=== PATIENT | male | born 1925 | race Two or more races ===

== ENCOUNTER 2016-11-07 17:03 | Inpatient (IN) | payer MEDICARE, BC ==
[~2016-11-07] VITALS: Ht 167.6 cm; Wt 54.6 kg
[2016-11-07 17:39] LABS: BASO # 0.1 x10^3/uL (0.0-0.2); BASO % 1 % (0-3); EOS # 0.3 x10^3/uL (0.0-0.7); EOS % 3 % (0-3); HEMATOCRIT 37.4 % (39.0-53.0); HEMOGLOBIN 12.2 g/dL (13.0-17.5); LYMPH # 1.8 x10^3/uL (1.0-4.8); LYMPH % 21 % (24-48); MEAN CORPUSCULAR HEMOGLOBIN 31 pg (25-35); MEAN CORPUSCULAR HGB CONC 33 g/dL (31-37); MEAN CORPUSCULAR VOLUME 94 fL (79-100); MONO # 0.7 x10^3/uL (0.0-1.1); MONO % 8 % (0-9); NEUT # 5.9 x10^3uL (1.8-7.7); NEUT % 67 % (31-73); PLATELET COUNT 364 x10^3/uL (140-400); RED BLOOD COUNT 3.99 x10^6/uL (4.30-5.70); RED CELL DISTRIBUTION WIDTH 13.7 % (11.5-14.5); WHITE BLOOD COUNT 8.7 x10^3/uL (4.0-11.0)
[2016-11-07 17:53] LABS: ALBUMIN 3.5 g/dL (3.4-5.0); ALBUMIN/GLOBULIN RATIO 0.7 (1.0-1.7); CALCIUM 9.3 mg/dL (8.5-10.1); CREATININE 1.6 mg/dL (0.7-1.3); GFR 40.9; MAGNESIUM 2.1 mg/dL (1.8-2.4); POTASSIUM 4.3 mmol/L (3.5-5.1); TOTAL BILIRUBIN 0.3 mg/dL (0.2-1.0); TOTAL PROTEIN 8.5 g/dL (6.4-8.2)
--- NOTE | 2016-11-07 18:03 | PHYS DOC ---
Past History Past Medical History: A-Fib, CHF, CVA, Dementia Past Surgical History: No Surgical History Alcohol Use: None Drug Use: None Adult General Chief Complaint Chief Complaint: PSYCH EVALUATION HPI HPI 89-year-old male patient resident of [place] did not take his medication for the last 2 weeks and was agitated. Patient brought in for medical clearance for psychiatric placement. Patient states he doesn't know why he is here. Review of Systems Review of Systems Constitutional: Denies fever or chills [] Eyes: Denies change in visual acuity, redness, or eye pain [] HENT: Denies nasal congestion or sore throat [] Respiratory: Denies cough or shortness of breath [] Cardiovascular: No additional information not addressed in HPI [] GI: Denies abdominal pain, nausea, vomiting, bloody stools or diarrhea [] : Denies dysuria or hematuria [] Musculoskeletal: Denies back pain or joint pain [] Integument: Denies rash or skin lesions [] Neurologic: Denies headache, focal weakness or sensory changes [] Endocrine: Denies polyuria or polydipsia [] Allergies Allergies Allergies Coded Allergies Type Severity Reaction Last Updated Verified No Known Drug Allergies 11/07/16 No Physical Exam Physical Exam Constitutional: Well nourished, no acute distress, non-toxic appearance. [] HENT: Normocephalic, atraumatic, bilateral external ears normal, oropharynx moist, no oral exudates, nose normal. [] Eyes: PERRLA, EOMI, conjunctiva normal, no discharge. [] Neck: Normal range of motion, no tenderness, supple, no stridor. [] Cardiovascular:Heart rate regular rhythm, no murmur [] Lungs & Thorax: Bilateral breath sounds clear to auscultation [] Abdomen: Bowel sounds normal, soft, no tenderness, no masses, no pulsatile masses. [] Skin: Warm, dry, no erythema, no rash. [] Back: No tenderness, no CVA tenderness. [] Extremities: No tenderness, no cyanosis, no clubbing, ROM intact, no edema. [] Neurologic: Alert and oriented X 1, normal motor function, normal sensory function, no focal deficits noted. [] Psychologic: Affect normal Current Patient Data Vital Signs Vital Signs Date Time Temp Pulse Resp B/P Pulse Ox O2 Delivery O2 Flow Rate FiO2 11/07/16 17:03 98.2 83 20 94 Room Air Lab Results Laboratory Tests Test 11/07/16 17:20 White Blood Count 8.7x10^3/uL (4.0-11.0) Red Blood Count 3.99x10^6/uL (4.30-5.70) L Hemoglobin 12.2g/dL (13.0-17.5) L Hematocrit 37.4% (39.0-53.0) L Mean Corpuscular Volume 94fL (79-100) Mean Corpuscular Hemoglobin 31pg (25-35) Mean Corpuscular Hemoglobin Concent 33g/dL (31-37) Red Cell Distribution Width 13.7% (11.5-14.5) Platelet Count 364x10^3/uL (140-400) Neutrophils (%) (Auto) 67% (31-73) Lymphocytes (%) (Auto) 21% (24-48) L Monocytes (%) (Auto) 8% (0-9) Eosinophils (%) (Auto) 3% (0-3) Basophils (%) (Auto) 1% (0-3) Neutrophils # (Auto) 5.9x10^3uL (1.8-7.7) Lymphocytes # (Auto) 1.8x10^3/uL (1.0-4.8) Monocytes # (Auto) 0.7x10^3/uL (0.0-1.1) Eosinophils # (Auto) 0.3x10^3/uL (0.0-0.7) Basophils # (Auto) 0.1x10^3/uL (0.0-0.2) Sodium Level 140mmol/L (136-145) Potassium Level 4.3mmol/L (3.5-5.1) Chloride Level 102mmol/L (98-107) Carbon Dioxide Level 29mmol/L (21-32) Anion Gap 9 (6-14) Blood Urea Nitrogen 27mg/dL (8-26) H Creatinine 1.6mg/dL (0.7-1.3) H Estimated GFR (Cockcroft-Gault) 40.9 BUN/Creatinine Ratio 17 (6-20) Glucose Level 116mg/dL (70-99) H Calcium Level 9.3mg/dL (8.5-10.1) Magnesium Level 2.1mg/dL (1.8-2.4) Total Bilirubin 0.3mg/dL (0.2-1.0) Aspartate Amino Transferase (AST) 26U/L (15-37) Alanine Aminotransferase (ALT) 44U/L (16-63) Alkaline Phosphatase 88U/L (46-116) Total Protein 8.5g/dL (6.4-8.2) H Albumin 3.5g/dL (3.4-5.0) Albumin/Globulin Ratio 0.7 (1.0-1.7) L EKG EKG [] Radiology/Procedures Radiology/Procedures [] Course & Med Decision Making Course & Med Decision Making Pertinent Labs reviewed. (See chart for details) Evaluation of patient in ER showed 89-year-old male patient brought in for medical clearance for psych placement. Patient had unremarkable physical exam except for dementia and labs. Patient was medically cleared for psych admission at 1817. [] Dragon Disclaimer Dragon Disclaimer This chart was dictated in whole or in part using Voice Recognition software in a busy, high-work load, and often noisy Emergency Department environment. It may contain unintended and wholly unrecognized errors or omissions. Departure Departure: Impression: Primary Impression: Medical clearance for psychiatric admission Additional Impression: Renal insufficiency Disposition: 65 XFER TO PSYCH HOSP/UNIT Condition: GOOD Referrals: ЮЛИЯ RUIZ JR, MD (PCP) Problem Qualifiers PIERRE ARREOLA MD Nov 07, 2016 18:03
[2016-11-07 18:05] LABS: BILIRUBIN,URINE NEG (NEG); CLARITY,URINE TURBID; COLOR,URINE YELLOW; GLUCOSE,URINE NEG (NEG)
[2016-11-07 18:06] LABS: NITRITE,URINE POS (NEG); RBC,URINE 0 /HPF (0-2); UROBILINOGEN,URINE 0.2 mg/dL (0.2 mg/dL)
[2016-11-07 18:07] LABS: BACTERIA,URINE MANY /HPF (0-FEW); WBC,URINE >40 /HPF (0-4)
[2016-11-07 18:41] VITALS: BP 138/74
[2016-11-07] MEDS ORDERED: QUEtiapine 25 MG TABLET. PO PRN (19:30)
[2016-11-07] MEDS ORDERED: ASCO500T3 PO (19:31)
[2016-11-07] MEDS ORDERED: IBUP200T5 PO (19:31)
[2016-11-07] MEDS ORDERED: VITA80003 PO (19:31)
[2016-11-07] MEDS ORDERED: LEVO75TA5 PO (19:31)
[2016-11-07] MEDS ORDERED: QUET25TA PO ×3 (19:31)
[2016-11-07] MEDS ORDERED: ASPI81TA44 PO (19:31)
[2016-11-07] MEDS ORDERED: METO25TA2 PO (19:31)
[2016-11-07] MEDS ORDERED: CYAN500T PO (19:31)
[2016-11-07] MEDS ORDERED: MULT1TAB97 PO (19:31)
[2016-11-07] MEDS ORDERED: MELA5TAB PO (19:31)
[2016-11-07] MEDS ORDERED: SODI22SP NS (19:31)
[2016-11-07] MEDS ORDERED: CHOL10003 PO (19:31)
[2016-11-07] MEDS ORDERED: METHYL SALICYLATE/MENTHOL TOPICAL OINTMENT 29GM TUBE. TP PRN (19:45)
[2016-11-07] MEDS ORDERED: IBUPROFEN 400 MG TABLET. PO PRN (19:45)
[2016-11-07] MEDS ORDERED: MAGNESIUM HYDROXIDE 2,400 MG/30 ML ORAL.SUSP. PO PRN (19:45)
[2016-11-07] MEDS ORDERED: ACETAMINOPHEN 325 MG TABLET PO PRN (19:45)
[2016-11-07] MEDS ORDERED: MAG HYDROX/AL HYDROX/SIMETH 30 ML ORAL.SUSP PO PRN (19:45)
[2016-11-07] MEDS ORDERED: SODIUM CHL/ALOE VERA NASAL GEL 14.1GM TUBE. NS PRN (20:00)
[2016-11-07] MEDS: MELATONIN 3 MG TABLET PO SCH (21:00)
[2016-11-07] MEDS: QUEtiapine 25 MG TABLET. PO SCH (21:00)
--- NOTE | 2016-11-07 21:21 | PDOC ---
Exam Bernabe Demential Exam: Bernabe Note: Please also refer to the separate dictated note~for this date of service dictated separately.~Patient seen individually. Discussed the patient with Nursing staff reviewed the chart.~Reviewed interim history and current functioning. Reviewed vital signs,~Labs/ Radiology~and current medications noted below. Continue current treatment with the changes noted in the dictated addendum note Assessment: Vital Signs: Vital Signs Date Time Temp Pulse Resp B/P Pulse Ox O2 Delivery O2 Flow Rate FiO2 11/07/16 18:41 88 18 138/74 96 Room Air 11/07/16 17:03 98.2 Labs: Laboratory Tests Test 11/07/16 17:20 11/07/16 17:35 White Blood Count 8.7x10^3/uL (4.0-11.0) Red Blood Count 3.99x10^6/uL (4.30-5.70) L Hemoglobin 12.2g/dL (13.0-17.5) L Hematocrit 37.4% (39.0-53.0) L Mean Corpuscular Volume 94fL (79-100) Mean Corpuscular Hemoglobin 31pg (25-35) Mean Corpuscular Hemoglobin Concent 33g/dL (31-37) Red Cell Distribution Width 13.7% (11.5-14.5) Platelet Count 364x10^3/uL (140-400) Neutrophils (%) (Auto) 67% (31-73) Lymphocytes (%) (Auto) 21% (24-48) L Monocytes (%) (Auto) 8% (0-9) Eosinophils (%) (Auto) 3% (0-3) Basophils (%) (Auto) 1% (0-3) Neutrophils # (Auto) 5.9x10^3uL (1.8-7.7) Lymphocytes # (Auto) 1.8x10^3/uL (1.0-4.8) Monocytes # (Auto) 0.7x10^3/uL (0.0-1.1) Eosinophils # (Auto) 0.3x10^3/uL (0.0-0.7) Basophils # (Auto) 0.1x10^3/uL (0.0-0.2) Sodium Level 140mmol/L (136-145) Potassium Level 4.3mmol/L (3.5-5.1) Chloride Level 102mmol/L (98-107) Carbon Dioxide Level 29mmol/L (21-32) Anion Gap 9 (6-14) Blood Urea Nitrogen 27mg/dL (8-26) H Creatinine 1.6mg/dL (0.7-1.3) H Estimated GFR (Cockcroft-Gault) 40.9 BUN/Creatinine Ratio 17 (6-20) Glucose Level 116mg/dL (70-99) H Calcium Level 9.3mg/dL (8.5-10.1) Magnesium Level 2.1mg/dL (1.8-2.4) Total Bilirubin 0.3mg/dL (0.2-1.0) Aspartate Amino Transferase (AST) 26U/L (15-37) Alanine Aminotransferase (ALT) 44U/L (16-63) Alkaline Phosphatase 88U/L (46-116) Total Protein 8.5g/dL (6.4-8.2) H Albumin 3.5g/dL (3.4-5.0) Albumin/Globulin Ratio 0.7 (1.0-1.7) L Urine Collection Type Unknown Urine Color Yellow Urine Clarity Turbid Urine pH 5.5 Urine Specific [place] 1.020 Urine Protein 30 mg/dl (NEG-TRACE) Urine Glucose (UA) Negmg/dL (NEG) Urine Ketones (Stick) Negmg/dL (NEG) Urine Blood Small (NEG) Urine Nitrite Pos (NEG) Urine Bilirubin Neg (NEG) Urine Urobilinogen Dipstick 0.2mg/dL (0.2 mg/dL) Urine Leukocyte Esterase Large (NEG) Urine RBC 0/HPF (0-2) Urine WBC >40/HPF (0-4) Urine Squamous Epithelial Cells None/LPF Urine Bacteria Many/HPF (0-FEW) Current Medications: Meds: Current Medications Quetiapine Fumarate (SEROquel) 12.5 mg BID92 PO ; Start 11/08/16 at 09:00 Quetiapine Fumarate (SEROquel) 12.5 mg PRN TID PRN PO ANXIETY / AGITATION; Start 11/07/16 at 19:30 Quetiapine Fumarate (SEROquel) 25 mg HS PO ; Start 11/07/16 at 21:00 Ascorbic Acid (Vitamin C) 500 mg DAILY PO ; Start 11/08/16 at 09:00 Aspirin (Children'S Aspirin) 81 mg DAILY PO ; Start 11/08/16 at 09:00 Vitamin D (Vitamin D3) 1,000 unit DAILY PO ; Start 11/08/16 at 09:00 Ibuprofen (Motrin) 400 mg PRN TID PRN PO PAIN; Start 11/07/16 at 19:45 Levothyroxine Sodium (Synthroid) 75 mcg DAILY06 PO ; Start 11/08/16 at 06:00 Metoprolol Succinate (Toprol Xl) 25 mg DAILY PO ; Start 11/08/16 at 09:00 Cyanocobalamin (Vitamin B-12) 500 mcg DAILY PO ; Start 11/08/16 at 09:00 Melatonin 4.5 mg HS PO ; Start 11/07/16 at 21:00 Multivitamins/ Calcium (Thera-M Plus) 1 tab DAILY PO ; Start 11/08/16 at 09:00 Sodium Chloride ([place] Saline Nasal) 1 isaura PRN QID PRN NS Dry Nasal Passages; Start 11/07/16 at 20:00 Non-Formulary Medication 8,000 unit DAILY PO Supplement; Start 11/08/16 at 09:00 ; Status UNV Acetaminophen (Tylenol) 650 mg PRN Q6HRS PRN PO PAIN / TEMP; Start 11/07/16 at 19:45 Multi-Ingredient Ointment (Analgesic [place]) 1 isaura PRN QID PRN TP MUSCLE PAIN; Start 11/07/16 at 19:45 Al Hydroxide/Mg Hydroxide (Mylanta Plus Xs) 15 ml PRN AFTMEALHC PRN PO DYSPEPSIA; Start 11/07/16 at 19:45 Magnesium Hydroxide (Milk Of Magnesia) 2,400 mg PRN QHS PRN PO CONSTIPATION; Start 11/07/16 at 19:45 Olanzapine (Zyprexa Zydis) 2.5 mg PRN Q2HR PRN PO PSYCHOSIS; Start 11/07/16 at 21:15 Active Scripts Active Reported Quetiapine Fumarate 25 Mg Tablet 12.5 Mg PO PRN TID PRN Ibuprofen 200 Mg Tablet 400 Mg PO PRN TID PRN [place] Saline Nasal Gel [place] (Sodium Chloride/Aloe Vera) 22 Ml [place] 2 Sprays NS PRN QID PRN Levothyroxine Sodium 75 Mcg Tablet 75 Mcg PO DAILY06 Melatonin 5 Mg Tablet 5 Mg PO HS Quetiapine Fumarate 25 Mg Tablet 25 Mg PO HS Quetiapine Fumarate 25 Mg Tablet 12.5 Mg PO BID Vitamin A 8,000 Unit Capsule 8,000 Unit PO DAILY Daily Multiple Vitamin (Multivitamin) 1 Each Tablet 1 Each PO DAILY Toprol Xl (Metoprolol Succinate) 25 Mg Tab.er.24h 25 Mg PO DAILY Vitamin B-12 (Cyanocobalamin (Vitamin B-12)) 500 Mcg Tablet 500 Mcg PO DAILY Vitamin D3 (Cholecalciferol (Vitamin D3)) 1,000 Unit Tablet 1,000 Unit PO DAILY Children's Aspirin (Aspirin) 81 Mg Tab.chew 81 Mg PO DAILY Ascorbic Acid 500 Mg Tablet 500 Mg PO DAILY Diagnosis: Problems: (1) Medical clearance for psychiatric admission DEANA MART MD Nov 07, 2016 21:21
[2016-11-08 05:47] VITALS: BP 149/79
[2016-11-08] MEDS: LEVOTHYROXINE 75 MCG TABLET PO SCH (05:48)
--- NOTE | 2016-11-08 07:28 | ACF ---
Admission Criteria Forms PSYCHIATRIC DISORDERS Clinical Indications for Inpatient Care (Place 'X' for any and all applicable criteria): Ongoing inpatient care may be needed for ANY ONE of the following(1)(2)(3)(4)(6) (7)(8): [ ]I. Danger to self or others not manageable at lower level of care. [ ]II. Grave disability (eg, inability to perform self care necessary at lower level of care) [X]III. Agitation or inappropriate behavior interfering with care for primary condition (eg, attempting to discontinue lines or drains prematurely, unable to cooperate with respiratory care) [ ]IV. Severe disability or disorder indicated by ALL of the following: [ ]a) Severe behavioral health disorder-related symptoms or condition indicated by ANY ONE of the following: [ ]i) Severe problem with cognition, memory, judgment, or impulse control [ ]ii) Severe clinical manifestations (eg, hallucinations, delusions, other acute psychotic symptoms, michelle, extreme agitation or anxiety) [ ]b) Patient management at lower level of care is not feasible until acute intervention or modification is initiated. Extended stay beyond goal length of stay for the primary condition may be indicated when ANY ONE of the following is present: (1)(2)(3)(4): [ ]a) Patient is a danger to self or others and not manageable at lower level of care. [ ]b) Behavior crisis management, including physical or chemical restraints, is required and is not available at a lower level of care. [ ]c) Behavioral symptoms (e.g., agitation, somnolence, inappropriate behavior) are present, and are not manageable at a lower level of care. [ ]d) Patient cannot understand follow-up treatment and crisis plan. [ ]e) Provider and supports are not sufficiently available at lower level of care. [ ]f) Patient cannot participate (e.g., verify absence of plan for harm) and is in needed of monitoring. The original [employer] content created by [employer] has been revised. The portions of the content which have been revised are identified through the use of italic text or in bold, and [facility] has neither reviewed nor approved the modified material. All other unmodified content is copyright [facility] [employer]. Please see references footnoted in the original [facility] edition 2016 Admission Criteria Met?: Yes KARINA BARBOUR Nov 08, 2016 07:27
[2016-11-08] MEDS: METOPROLOL SUCC 24HR ER 25 MG TAB.ER.24H. PO SCH ×2 (09:00→09:18)
[2016-11-08] MEDS: ASCORBIC ACID 500 MG TABLET PO SCH ×2 (09:00→09:18)
[2016-11-08] MEDS: MULTIVITAMIN with MINERAL TABLET. PO SCH ×2 (09:00→09:16)
[2016-11-08] MEDS: ASPIRIN 81 MG TAB.CHEW PO SCH ×2 (09:00→09:14)
[2016-11-08] MEDS: CHOLECALCIFEROL (VITAMIN D3) 1,000 UNIT TABLET PO SCH ×2 (09:00→09:18)
[2016-11-08] MEDS: QUEtiapine 25 MG TABLET. PO SCH ×4 (09:00→19:30)
[2016-11-08] MEDS: CYANOCOBALAMIN (VITAMIN B-12) 250 MCG TABLET PO SCH ×2 (09:00→09:18)
[2016-11-08] MEDS ORDERED: PNEUMOC CONJ VACC 23-VALENT 0.5 ML VIAL. VAX IM ONE (09:00)
[2016-11-08] MEDS ORDERED: NON FORMULARY ITEM (Vitamin A 8,000 UNIT) PO SCH (09:00)
[2016-11-08] MEDS: OLANZAPINE ZYDIS 5 MG TAB.RAPDIS PO PRN (09:16)
--- NOTE | 2016-11-08 10:50 | EKG ---
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
[2016-11-08 14:46] LABS: IRON,SERUM 64 ug/dL (65-175)
[2016-11-08 14:48] LABS: THYROID STIM HORMONE (TSH) 3.931 uIU/mL (0.358-3.740)
[2016-11-08 15:48] VITALS: BP 146/79
[2016-11-08] MEDS ORDERED: CEFTRIAXONE IM 1 GM VIAL. IM ONE (18:00)
[2016-11-08 18:09] LABS: T3 TOTAL 73 ng/dL (71-180); THYROXINE 6.6 ug/dL (4.5-12.0)
[2016-11-08] MEDS: MELATONIN 3 MG TABLET PO SCH (19:30)
--- NOTE | 2016-11-08 20:21 | HP ---
ADMIT DATE: 11/07/2016 Psychiatric Admission History/Evaluation IDENTIFYING DATA: The patient is an 89-year-old male referred to us from [facility] by Dr. Abhi Styles, his primary care physician on account of being verbally aggressive, threatening others, refusing his medications. The patient had been admitted to [facility] just a couple of days previously, behaviors were unmanageable, dangerous had failed outpatient psychiatric interventions. He was therefore referred for inpatient psychiatric stabilization. CHIEF COMPLAINT: "I am okay. I was living at home with my family. They took me to the hospital and then to the senior living. I don't know why they sent me here." HISTORY OF PRESENT ILLNESS: The patient has a history of increasing agitation, aggression, mood lability. He has also had some short term memory deficits. No clear suicidal or homicidal ideation. No clear history of bipolar disorder. PAST PSYCHIATRIC HISTORY: Positive for some short term memory deficits, agitation, paranoia. PAST MEDICAL HISTORY: Positive for status post CVA, congestive heart failure, atrial fibrillation, renal failure, edema, hypothyroidism. The patient was seen at the [facility] Emergency Room prior to this admission, found to be medically stable to be on a unit. DRUG ALLERGIES: Negative. FAMILY HISTORY: Noncontributory. SOCIAL HISTORY: No alcohol or drug abuse history. The patient states he served in the [employer]. PHYSICAL EXAMINATION: VITAL SIGNS: Temperature 98.2, pulse 83, BP 132/76, pulse ox 94%. MENTAL STATUS EXAM: The patient was seen individually in the evening of 11/08/2016. He is oriented to himself and situation. Short term memory is impaired. He is somewhat paranoid, suspicious, withdrawn, often verbal responses, monosyllabic, short and somewhat abrupt. No active suicidal or homicidal ideation. Attention span short, language function intact. REVIEW OF SYSTEMS: No CV, , eye, ENT or pulmonary system symptoms on review. LABORATORY DATA: Reviewed. IMPRESSION: Major neurocognitive disorder, early vascular with depression, delusion, behavioral disturbance; anxiety disorder, unspecified; impulse control disorder, unspecified. Rest diagnosis is unchanged. PLAN: Admit to the geropsychiatry unit at [facility]. I will see the patient daily individually from a psychiatric standpoint, request medical followup with Dr. Moreno/Dr. Faulkner. Continue the patient on his B12 supplements, vitamin D supplements. Continue Synthroid together with the Zyprexa p.r.n., Seroquel 12.5 mg b.i.d. and 25 mg at bedtime plus p.r.n. Code Status DNR. May consider BuSpar for anxiety, SSRIs for his mood, depression symptoms, Depakote if aggression resurfaces. MAN Sera MART MD DR: KHADAR/mariza JOB#: [id number] / [id number]
--- NOTE | 2016-11-08 21:07 | PDOC ---
Exam Bernabe Demential Exam: Bernabe Note: Please also refer to the separate dictated note~for this date of service dictated separately.~Patient seen individually. Discussed the patient with Nursing staff reviewed the chart.~Reviewed interim history and current functioning. Reviewed vital signs,~Labs/ Radiology~and current medications noted below. Continue current treatment with the changes noted in the dictated addendum note Assessment: Vital Signs: Vital Signs Date Time Temp Pulse Resp B/P Pulse Ox O2 Delivery O2 Flow Rate FiO2 11/08/16 15:48 98.5 71 18 146/79 97 11/07/16 18:41 Room Air I&O Intake and Output 11/08/16 07:00 Intake Total 120 ml Balance 120 ml Intake Oral 120 ml Current Medications: Meds: Current Medications Quetiapine Fumarate (SEROquel) 12.5 mg BID92 PO Last administered on 11/08/16 14:29; Start 11/08/16 at 09:00 Quetiapine Fumarate (SEROquel) 12.5 mg PRN TID PRN PO ANXIETY / AGITATION; Start 11/07/16 at 19:30 Quetiapine Fumarate (SEROquel) 25 mg HS PO Last administered on 11/08/16 19:30 ; Start 11/07/16 at 21:00 Ascorbic Acid (Vitamin C) 500 mg DAILY PO ; Start 11/08/16 at 09:00 Aspirin (Children'S Aspirin) 81 mg DAILY PO ; Start 11/08/16 at 09:00 Vitamin D (Vitamin D3) 1,000 unit DAILY PO ; Start 11/08/16 at 09:00 Ibuprofen (Motrin) 400 mg PRN TID PRN PO PAIN; Start 11/07/16 at 19:45 Levothyroxine Sodium (Synthroid) 75 mcg DAILY06 PO Last administered on 05:48; Start 11/08/16 at 06:00 Metoprolol Succinate (Toprol Xl) 25 mg DAILY PO ; Start 11/08/16 at 09:00 Cyanocobalamin (Vitamin B-12) 500 mcg DAILY PO ; Start 11/08/16 at 09:00 Melatonin 4.5 mg HS PO Last administered on 11/08/16 19:30; Start 11/07/16 at 21:00 Multivitamins/ Calcium (Thera-M Plus) 1 tab DAILY PO ; Start 11/08/16 at 09:00 Sodium Chloride ([place] Saline Nasal) 1 isaura PRN QID PRN NS Dry Nasal Passages; Start 11/07/16 at 20:00 Non-Formulary Medication 8,000 unit DAILY PO Supplement; Start 11/08/16 at 09:00 ; Stop 11/08/16 at 09:00; Status DC Acetaminophen (Tylenol) 650 mg PRN Q6HRS PRN PO PAIN / TEMP; Start 11/07/16 at 19:45 Multi-Ingredient Ointment (Analgesic [place]) 1 isaura PRN QID PRN TP MUSCLE PAIN; Start 11/07/16 at 19:45 Al Hydroxide/Mg Hydroxide (Mylanta Plus Xs) 15 ml PRN AFTMEALHC PRN PO DYSPEPSIA; Start 11/07/16 at 19:45 Magnesium Hydroxide (Milk Of Magnesia) 2,400 mg PRN QHS PRN PO CONSTIPATION; Start 11/07/16 at 19:45 Olanzapine (Zyprexa Zydis) 2.5 mg PRN Q2HR PRN PO PSYCHOSIS Last administered on 11/08/16t 09:16; Start 11/07/16 at 21:15 Pneumococcal Polyvalent Vaccine (Pneumovax 23) 0.5 ml ONCE ONCE VAX IM ; Start 11/08/16 at 09:00; Stop 11/08/16 at 09:01; Status DC Ceftriaxone Sodium (Rocephin Im) 1 gm 1X ONCE IM ; Start 11/08/16 at 18:00; Stop 11/08/16 at 18:01; Status Cancel Vitamin A 10,000 unit DAILY PO ; Start 11/09/16 at 09:00 Ceftriaxone Sodium (Rocephin Im) 1 gm 1X ONCE IM ; Start 11/09/16 at 09:00; Stop 11/09/16 at 09:01 Active Scripts Active Reported Quetiapine Fumarate 25 Mg Tablet 12.5 Mg PO PRN TID PRN Ibuprofen 200 Mg Tablet 400 Mg PO PRN TID PRN [place] Saline Nasal Gel [place] (Sodium Chloride/Aloe Vera) 22 Ml [place] 2 Sprays NS PRN QID PRN Levothyroxine Sodium 75 Mcg Tablet 75 Mcg PO DAILY06 Melatonin 5 Mg Tablet 5 Mg PO HS Quetiapine Fumarate 25 Mg Tablet 25 Mg PO HS Quetiapine Fumarate 25 Mg Tablet 12.5 Mg PO BID Vitamin A 8,000 Unit Capsule 8,000 Unit PO DAILY Daily Multiple Vitamin (Multivitamin) 1 Each Tablet 1 Each PO DAILY Toprol Xl (Metoprolol Succinate) 25 Mg Tab.er.24h 25 Mg PO DAILY Vitamin B-12 (Cyanocobalamin (Vitamin B-12)) 500 Mcg Tablet 500 Mcg PO DAILY Vitamin D3 (Cholecalciferol (Vitamin D3)) 1,000 Unit Tablet 1,000 Unit PO DAILY Children's Aspirin (Aspirin) 81 Mg Tab.chew 81 Mg PO DAILY Ascorbic Acid 500 Mg Tablet 500 Mg PO DAILY Diagnosis: Problems: (1) Renal insufficiency (2) Medical clearance for psychiatric admission DEANA MART MD Nov 08, 2016 21:07
--- NOTE | 2016-11-08 23:26 | CONS ---
DATE OF CONSULTATION: 11/07/2016 REASON FOR CONSULTATION: Medical management. HISTORY OF PRESENT ILLNESS: This is an 89-year-old male patient who was transferred to [facility] from [facility] where he was admitted there as a transfer from [facility]. He was there only for 2 days. Apparently, he has been refusing medication, verbally aggressive, increased confusion, apparently up until recently he has been living at home on his own and the family stated that his personality has completely changed. He is here for inpatient psychiatric stabilization. PAST MEDICAL HISTORY: Significant for atrial fibrillation, congestive heart failure, and cerebrovascular accident. He apparently has history of rhabdomyolysis and renal dysfunction before. He was brought to the Emergency Room of [facility] with increasing alteration in mental status that has been worsening about 2 weeks prior to evaluation. His family said that he has odd behaviors and thinks that he still speaks with his or have suspicious thoughts over the past two days, he did not recognize his daughter and thought his daughter was killing her and has other bizarre content of his speech. He apparently was started about a month ago on sertraline and Myrbetriq. PAST SURGICAL HISTORY: Unremarkable. ALLERGIES: He has no known drug allergies. MEDICATIONS: He is currently on following medications: He is on ascorbic acid 500 mg once a day, aspirin 81 mg once a day, cholecalciferol vitamin D 1000 units once a day, cyanocobalamin 500 mcg once a day, ibuprofen 400 mg three times a day, levothyroxine sodium 75 mcg once a day, melatonin 5 mg at bedtime, metoprolol succinate 25 mg once a day, multivitamin 1 tablet once a day, , Seroquel 25 mg at bedtime, Seroquel 12.5 mg three times a day as needed. He is on Frontier saline nasal gel spray 2 sprays to each nostril 4 times a day, and vitamin A 8000 units once a day. FAMILY HISTORY: Unremarkable. SOCIAL HISTORY: Apparently, he is , lives alone. He does not smoke, drink alcohol, or use any recreational drugs. REVIEW OF SYSTEMS: Unobtainable. When I saw him this afternoon, he was sitting at the dining table eating his lunch, says supper, clearly hungry. Seemed to be pale, somewhat cachectic, in fact his body mass index was only 19.9 kg square meter. PHYSICAL EXAMINATION: VITAL SIGNS: Heart rate was 71, blood pressure 146/79, temperature was 98.5, respiratory rate was 18, and oxygen saturation was 97%. According to the Emergency Room evaluation, HEAD, EYES, EARS, NOSE, AND THROAT: Showed normocephalic, atraumatic. NECK: Supple, with no lymphadenopathy, no thyromegaly. HEART: Showed normal first and second sounds with no gallop, rub, or murmur. CHEST: Clear to auscultation. No crepitation or rhonchi. ABDOMEN: Scaphoid, soft, nontender. NEUROLOGIC: He is awake, alert, responding appropriately. All his cranial nerves were intact. EXTREMITIES: He moves extremities without difficulty. He is able to ambulate without assistance or assistive devices. LABORATORY DATA: Showed a white cell count of 8700, hemoglobin 12, hematocrit 37, MCV 94, and platelet count 364,000 with normal manual differential. Her chemistry showed a serum sodium 140, potassium 4.3, chloride 102, bicarbonate 29, anion gap of 9, BUN 27, creatinine 1.6, estimated GFR was 41 mL per minute, his glucose 116, calcium was 9.3, total magnesium was 2.1. Serum iron was 64, total iron binding capacity was 312, and percent saturation was 21%. Total bilirubin, AST, ALT, alkaline phosphatase were normal. Total protein was high, and albumin was 3.5. Serum triglycerides 112, cholesterol was 198, LDL cholesterol 134, VLDL was 22, and HDL cholesterol was 42. The ratio was 4. His vitamin B12 was 1598 pg/mL. TSH was 3.931 which is normal. Urinalysis showed the urine was yellow, turbid with a pH of 5.5, specific gravity of 1.020. There was a trace of protein, negative for glucose, ketones, small amount of blood, positive for nitrite, negative for bilirubin. There was large amount of leukocyte esterase, 0 rbc's and more than 40 wbc's, and too many bacterias. In fact, his urine culture showed growth of more than 100,000 colony forming units per mL of gram-negative rods. The identification and sensitivity is still pending at the time of this dictation. IMPRESSION: In summary, this is an 89-year-old male patient who was transferred from [facility] on the account of refusing medication, being verbally aggressive towards staff. He is known to have multi-infarct and multiple cerebrovascular accidents that are multifocal. He is known to have congestive heart failure, chronic, most probably diastolic. His echocardiogram done on 09/09/2016 showed that he has left ventricular systolic function of 50% to 55%. He has atrial fibrillation, rate which is controlled. He is known to have chronic renal failure and an episode of rhabdomyolysis with [id number] renal dysfunction. PLAN: My plan is probably to start him on antibiotics and arrange for him to have a serum protein electrophoresis given his markedly elevated serum protein. I will also arrange for him to have a renal ultrasound to make sure that there is no evidence of any hydronephrosis or enlarged prostate. No metabolic abnormality at least in his lab work, his serum sodium was normal, his calcium even corrected for serum albumin still within normal range. Thank you, Dr. Jeffery for allowing me to participate in the care of this patient. DEVANG FORRESTER MD DR: ROSA/amriza JOB#: [id number] / [id number]
[2016-11-09 03:11] LABS: HEMOGLOBIN A1C 5.9 % (4.8-5.6)
[2016-11-09 03:11] LABS: VITAMIN D25(OH)TOTAL 35.7 ng/mL (30.0-100.0)
[2016-11-09 05:09] LABS: RPR REFLEX Negative (Non Reactive)
[2016-11-09 05:51] VITALS: BP 151/75
[2016-11-09] MEDS: LEVOTHYROXINE 75 MCG TABLET PO SCH (05:57)
--- NOTE | 2016-11-09 08:18 | RAD ---
Renal ultrasound, 11/09/2016: History: Impaired renal function The right kidney measures 9.7 cm in length while the left kidney measures 9.3 cm. There is a 1.2 cm cyst in the lower pole of the right kidney. No other renal mass is seen. The renal parenchymal echogenicity is otherwise unremarkable. There is no evidence of hydronephrosis. No abnormal perinephric process is seen. The bladder is collapsed and not adequately delineated. IMPRESSION: 1. Small right renal cyst. 2. The kidneys are otherwise unremarkable.
[2016-11-09] MEDS: METOPROLOL SUCC 24HR ER 25 MG TAB.ER.24H. PO SCH (08:31)
[2016-11-09] MEDS: CHOLECALCIFEROL (VITAMIN D3) 1,000 UNIT TABLET PO SCH (08:31)
[2016-11-09] MEDS: QUEtiapine 25 MG TABLET. PO SCH ×3 (08:31→19:34)
[2016-11-09] MEDS: CYANOCOBALAMIN (VITAMIN B-12) 250 MCG TABLET PO SCH (08:31)
[2016-11-09] MEDS: ASPIRIN 81 MG TAB.CHEW PO SCH (08:32)
[2016-11-09] MEDS: MULTIVITAMIN with MINERAL TABLET. PO SCH (08:32)
[2016-11-09] MEDS: ASCORBIC ACID 500 MG TABLET PO SCH (08:32)
[2016-11-09] MEDS ORDERED: CEFTRIAXONE IM 1 GM VIAL. IM ONE (09:00)
[2016-11-09] MEDS: VITAMIN A 10,000 UNIT CAPSULE. PO SCH (09:01)
[2016-11-09] MEDS: OLANZAPINE ZYDIS 5 MG TAB.RAPDIS PO PRN (09:27)
[2016-11-09 15:41] VITALS: BP 142/66
[2016-11-09] MEDS: MELATONIN 3 MG TABLET PO SCH (19:34)
--- NOTE | 2016-11-09 22:01 | PDOC ---
Exam Bernabe Demential Exam: Bernabe Note: Please also refer to the separate dictated note~for this date of service dictated separately.~Patient seen individually. Discussed the patient with Nursing staff reviewed the chart.~Reviewed interim history and current functioning. Reviewed vital signs,~Labs/ Radiology~and current medications noted below. Continue current treatment with the changes noted in the dictated addendum note Assessment: Vital Signs: Vital Signs Date Time Temp Pulse Resp B/P Pulse Ox O2 Delivery O2 Flow Rate FiO2 11/09/16 15:41 97.8 75 18 142/66 100 Room Air I&O Intake and Output 11/09/16 07:00 Intake Total 960 ml Balance 960 ml Intake Oral 960 ml # Bowel Movements 3 Current Medications: Meds: Current Medications Quetiapine Fumarate (SEROquel) 12.5 mg BID92 PO Last administered on 11/09/16 16:02; Start 11/08/16 at 09:00 Quetiapine Fumarate (SEROquel) 12.5 mg PRN TID PRN PO ANXIETY / AGITATION; Start 11/07/16 at 19:30 Quetiapine Fumarate (SEROquel) 25 mg HS PO Last administered on 11/09/16 19:34 ; Start 11/07/16 at 21:00 Ascorbic Acid (Vitamin C) 500 mg DAILY PO Last administered on 11/09/16 08:32 ; Start 11/08/16 at 09:00 Aspirin (Children'S Aspirin) 81 mg DAILY PO Last administered on 11/09/16 08: 32; Start 11/08/16 at 09:00 Vitamin D (Vitamin D3) 1,000 unit DAILY PO Last administered on 11/09/16 08:31 ; Start 11/08/16 at 09:00 Ibuprofen (Motrin) 400 mg PRN TID PRN PO PAIN; Start 11/07/16 at 19:45 Levothyroxine Sodium (Synthroid) 75 mcg DAILY06 PO Last administered on 05:57; Start 11/08/16 at 06:00 Metoprolol Succinate (Toprol Xl) 25 mg DAILY PO Last administered on 11/09/16 08:31; Start 11/08/16 at 09:00; Stop 11/09/16 at 17:46; Status DC Cyanocobalamin (Vitamin B-12) 500 mcg DAILY PO Last administered on 11/09/16 08:31; Start 11/08/16 at 09:00 Melatonin 4.5 mg HS PO Last administered on 11/09/16 19:34; Start 11/07/16 at 21:00 Multivitamins/ Calcium (Thera-M Plus) 1 tab DAILY PO Last administered on 08:32; Start 11/08/16 at 09:00 Sodium Chloride ([place] Saline Nasal) 1 isaura PRN QID PRN NS Dry Nasal Passages; Start 11/07/16 at 20:00 Non-Formulary Medication 8,000 unit DAILY PO Supplement; Start 11/08/16 at 09:00 ; Stop 11/08/16 at 09:00; Status DC Acetaminophen (Tylenol) 650 mg PRN Q6HRS PRN PO PAIN / TEMP; Start 11/07/16 at 19:45 Multi-Ingredient Ointment (Analgesic [place]) 1 isaura PRN QID PRN TP MUSCLE PAIN; Start 11/07/16 at 19:45 Al Hydroxide/Mg Hydroxide (Mylanta Plus Xs) 15 ml PRN AFTMEALHC PRN PO DYSPEPSIA; Start 11/07/16 at 19:45 Magnesium Hydroxide (Milk Of Magnesia) 2,400 mg PRN QHS PRN PO CONSTIPATION; Start 11/07/16 at 19:45 Olanzapine (Zyprexa Zydis) 2.5 mg PRN Q2HR PRN PO PSYCHOSIS Last administered on 11/09/16 09:27; Start 11/07/16 at 21:15 Pneumococcal Polyvalent Vaccine (Pneumovax 23) 0.5 ml ONCE ONCE VAX IM ; Start 11/08/16 at 09:00; Stop 11/08/16 at 09:01; Status DC Ceftriaxone Sodium (Rocephin Im) 1 gm 1X ONCE IM ; Start 11/08/16 at 18:00; Stop 11/08/16 at 18:01; Status Cancel Vitamin A 10,000 unit DAILY PO Last administered on 11/09/16 09:01; Start at 09:00 Ceftriaxone Sodium (Rocephin Im) 1 gm 1X ONCE IM Last administered on 09:22; Start 11/09/16 at 09:00; Stop 3/15/17 at 09:01; Status DC Metoprolol Tartrate (Lopressor) 25 mg BID PO ; Start 11/09/16 at 21:00 Sertraline HCl (Zoloft) 50 mg DAILY PO ; Start 11/10/16 at 09:00 Active Scripts Active Reported Quetiapine Fumarate 25 Mg Tablet 12.5 Mg PO PRN TID PRN Ibuprofen 200 Mg Tablet 400 Mg PO PRN TID PRN [place] Saline Nasal Gel [place] (Sodium Chloride/Aloe Vera) 22 Ml [place] 2 Sprays NS PRN QID PRN Levothyroxine Sodium 75 Mcg Tablet 75 Mcg PO DAILY06 Melatonin 5 Mg Tablet 5 Mg PO HS Quetiapine Fumarate 25 Mg Tablet 25 Mg PO HS Quetiapine Fumarate 25 Mg Tablet 12.5 Mg PO BID Vitamin A 8,000 Unit Capsule 8,000 Unit PO DAILY Daily Multiple Vitamin (Multivitamin) 1 Each Tablet 1 Each PO DAILY Toprol Xl (Metoprolol Succinate) 25 Mg Tab.er.24h 25 Mg PO DAILY Vitamin B-12 (Cyanocobalamin (Vitamin B-12)) 500 Mcg Tablet 500 Mcg PO DAILY Vitamin D3 (Cholecalciferol (Vitamin D3)) 1,000 Unit Tablet 1,000 Unit PO DAILY Children's Aspirin (Aspirin) 81 Mg Tab.chew 81 Mg PO DAILY Ascorbic Acid 500 Mg Tablet 500 Mg PO DAILY Diagnosis: Problems: (1) Anxiety disorder (2) Dementia in Alzheimer's disease with delusions (3) Dementia in Alzheimer's disease with depression (4) Impulse control disorder (5) Major depressive disorder, recurrent episode DAENA MART MD Nov 09, 2016 22:01
[2016-11-09] MEDS: METOPROLOL TART IMMED RELEASE 25 MG TABLET PO SCH (22:11)
[2016-11-10] MEDS: LEVOTHYROXINE 75 MCG TABLET PO SCH (05:05)
[2016-11-10 05:36] VITALS: BP 128/64
[2016-11-10] MEDS: METOPROLOL TART IMMED RELEASE 25 MG TABLET PO SCH ×2 (07:38→20:52)
[2016-11-10] MEDS: CHOLECALCIFEROL (VITAMIN D3) 1,000 UNIT TABLET PO SCH (07:38)
[2016-11-10] MEDS: VITAMIN A 10,000 UNIT CAPSULE. PO SCH (07:38)
[2016-11-10] MEDS: CYANOCOBALAMIN (VITAMIN B-12) 250 MCG TABLET PO SCH (07:39)
[2016-11-10] MEDS: ASCORBIC ACID 500 MG TABLET PO SCH (07:39)
[2016-11-10] MEDS: MULTIVITAMIN with MINERAL TABLET. PO SCH (07:39)
[2016-11-10] MEDS: ASPIRIN 81 MG TAB.CHEW PO SCH (07:39)
[2016-11-10] MEDS: QUEtiapine 25 MG TABLET. PO SCH ×3 (07:39→20:52)
[2016-11-10] MEDS: SERTRALINE 25 MG TABLET. PO SCH (07:44)
[2016-11-10 15:36] VITALS: BP 130/57
[2016-11-10] MEDS: CEFPODOXIME PROXETIL 200 MG TABLET PO SCH (20:51)
[2016-11-10] MEDS: MELATONIN 3 MG TABLET PO SCH (20:52)
--- NOTE | 2016-11-10 21:07 | PDOC ---
Exam Bernabe Demential Exam: Bernabe Note: Please also refer to the separate dictated note~for this date of service dictated separately.~Patient seen individually. Discussed the patient with Nursing staff reviewed the chart.~Reviewed interim history and current functioning. Reviewed vital signs,~Labs/ Radiology~and current medications noted below. Continue current treatment with the changes noted in the dictated addendum note Assessment: Vital Signs: Vital Signs Date Time Temp Pulse Resp B/P Pulse Ox O2 Delivery O2 Flow Rate FiO2 11/10/16 20:52 76 150/71 11/10/16 15:36 97.8 16 100 11/09/16 15:41 Room Air I&O Intake and Output 11/10/16 07:00 Intake Total 840 ml Balance 840 ml Intake Oral 840 ml Current Medications: Meds: Current Medications Quetiapine Fumarate (SEROquel) 12.5 mg BID92 PO Last administered on 11/10/16 13:16; Start 11/08/16 at 09:00 Quetiapine Fumarate (SEROquel) 12.5 mg PRN TID PRN PO ANXIETY / AGITATION; Start 11/07/16 at 19:30 Quetiapine Fumarate (SEROquel) 25 mg HS PO Last administered on 11/10/16 20:52 ; Start 11/07/16 at 21:00 Ascorbic Acid (Vitamin C) 500 mg DAILY PO Last administered on 11/10/16 07:39 ; Start 11/08/16 at 09:00 Aspirin (Children'S Aspirin) 81 mg DAILY PO Last administered on 11/10/16 07: 39; Start 11/08/16 at 09:00 Vitamin D (Vitamin D3) 1,000 unit DAILY PO Last administered on 11/10/16 07:38 ; Start 11/08/16 at 09:00 Ibuprofen (Motrin) 400 mg PRN TID PRN PO PAIN; Start 11/07/16 at 19:45 Levothyroxine Sodium (Synthroid) 75 mcg DAILY06 PO Last administered on 05:05; Start 11/08/16 at 06:00 Metoprolol Succinate (Toprol Xl) 25 mg DAILY PO Last administered on 11/09/16 08:31; Start 11/08/16 at 09:00; Stop 11/09/16 at 17:46; Status DC Cyanocobalamin (Vitamin B-12) 500 mcg DAILY PO Last administered on 11/10/16 07:39; Start 11/08/16 at 09:00 Melatonin 4.5 mg HS PO Last administered on 11/10/16 20:52; Start 11/07/16 at 21:00 Multivitamins/ Calcium (Thera-M Plus) 1 tab DAILY PO Last administered on 07:39; Start 11/08/16 at 09:00 Sodium Chloride ([place] Saline Nasal) 1 isaura PRN QID PRN NS Dry Nasal Passages; Start 11/07/16 at 20:00 Non-Formulary Medication 8,000 unit DAILY PO Supplement; Start 11/08/16 at 09:00 ; Stop 11/08/16 at 09:00; Status DC Acetaminophen (Tylenol) 650 mg PRN Q6HRS PRN PO PAIN / TEMP; Start 11/07/16 at 19:45 Multi-Ingredient Ointment (Analgesic [place]) 1 isaura PRN QID PRN TP MUSCLE PAIN; Start 11/07/16 at 19:45 Al Hydroxide/Mg Hydroxide (Mylanta Plus Xs) 15 ml PRN AFTMEALHC PRN PO DYSPEPSIA; Start 11/07/16 at 19:45 Magnesium Hydroxide (Milk Of Magnesia) 2,400 mg PRN QHS PRN PO CONSTIPATION; Start 11/07/16 at 19:45 Olanzapine (Zyprexa Zydis) 2.5 mg PRN Q2HR PRN PO PSYCHOSIS Last administered on 11/09/16 09:27; Start 11/07/16 at 21:15 Pneumococcal Polyvalent Vaccine (Pneumovax 23) 0.5 ml ONCE ONCE VAX IM ; Start 11/08/16 at 09:00; Stop 11/08/16 at 09:01; Status DC Ceftriaxone Sodium (Rocephin Im) 1 gm 1X ONCE IM ; Start 11/08/16 at 18:00; Stop 11/08/16 at 18:01; Status Cancel Vitamin A 10,000 unit DAILY PO Last administered on 11/10/16 07:38; Start at 09:00 Ceftriaxone Sodium (Rocephin Im) 1 gm 1X ONCE IM Last administered on 09:22; Start 11/09/16 at 09:00; Stop 11/09/16 at 09:01; Status DC Metoprolol Tartrate (Lopressor) 25 mg BID PO Last administered on 11/10/16 20: 52; Start 11/09/16 at 21:00 Sertraline HCl (Zoloft) 50 mg DAILY PO Last administered on 11/10/16 07:44; Start 11/10/16 at 09:00 Cefpodoxime Proxetil (Vantin) 200 mg BID PO Last administered on 11/10/16 20: 51; Start 11/10/16 at 21:00; Stop 11/17/16 at 22:00 Active Scripts Active Reported Quetiapine Fumarate 25 Mg Tablet 12.5 Mg PO PRN TID PRN Ibuprofen 200 Mg Tablet 400 Mg PO PRN TID PRN [place] Saline Nasal Gel [place] (Sodium Chloride/Aloe Vera) 22 Ml [place] 2 Sprays NS PRN QID PRN Levothyroxine Sodium 75 Mcg Tablet 75 Mcg PO DAILY06 Melatonin 5 Mg Tablet 5 Mg PO HS Quetiapine Fumarate 25 Mg Tablet 25 Mg PO HS Quetiapine Fumarate 25 Mg Tablet 12.5 Mg PO BID Vitamin A 8,000 Unit Capsule 8,000 Unit PO DAILY Daily Multiple Vitamin (Multivitamin) 1 Each Tablet 1 Each PO DAILY Toprol Xl (Metoprolol Succinate) 25 Mg Tab.er.24h 25 Mg PO DAILY Vitamin B-12 (Cyanocobalamin (Vitamin B-12)) 500 Mcg Tablet 500 Mcg PO DAILY Vitamin D3 (Cholecalciferol (Vitamin D3)) 1,000 Unit Tablet 1,000 Unit PO DAILY Children's Aspirin (Aspirin) 81 Mg Tab.chew 81 Mg PO DAILY Ascorbic Acid 500 Mg Tablet 500 Mg PO DAILY Diagnosis: Problems: (1) Medical clearance for psychiatric admission (2) Anxiety disorder (3) Impulse control disorder (4) Major depressive disorder, recurrent episode (5) Dementia in Alzheimer's disease with depression (6) Dementia in Alzheimer's disease with delusions DEANA MART MD Nov 10, 2016 21:07
[2016-11-11 06:00] VITALS: BP 134/66
[2016-11-11] MEDS: LEVOTHYROXINE 75 MCG TABLET PO SCH (06:03)
[2016-11-11] MEDS: VITAMIN A 10,000 UNIT CAPSULE. PO SCH (09:41)
[2016-11-11] MEDS: CYANOCOBALAMIN (VITAMIN B-12) 250 MCG TABLET PO SCH (09:42)
[2016-11-11] MEDS: SERTRALINE 25 MG TABLET. PO SCH (09:42)
[2016-11-11] MEDS: ASPIRIN 81 MG TAB.CHEW PO SCH (09:42)
[2016-11-11] MEDS: CEFPODOXIME PROXETIL 200 MG TABLET PO SCH (09:42)
[2016-11-11] MEDS: METOPROLOL TART IMMED RELEASE 25 MG TABLET PO SCH ×2 (09:42→20:32)
[2016-11-11] MEDS: ASCORBIC ACID 500 MG TABLET PO SCH (09:43)
[2016-11-11] MEDS: QUEtiapine 25 MG TABLET. PO SCH ×3 (09:43→20:44)
[2016-11-11] MEDS: CHOLECALCIFEROL (VITAMIN D3) 1,000 UNIT TABLET PO SCH (09:44)
[2016-11-11] MEDS: MULTIVITAMIN with MINERAL TABLET. PO SCH (09:44)
--- NOTE | 2016-11-11 09:45 | PN ---
DATE: 11/09/2016 PSYCHIATRIC PROGRESS NOTE This is a late entry for 11/09/2016 covers elements not covered in my initial of 11/09/2016. SUBJECTIVE: Per nursing report, the patient remains somewhat paranoid, suspicious, depressed, withdrawn, refused to come out of the dining room for meals. He does have a UTI is on Rocephin for this, somewhat sarcastic laughing at nursing staff. REVIEW OF SYSTEMS: No CV, , pulmonary, eye, ENT system symptoms on review. He is not very forthcoming on questioning. MENTAL STATUS EXAM: Oriented to himself and situation. Speech has some latency, often responses monosyllabic. Abstraction fair, computation impaired, language function intact. Mood and affect somewhat withdrawn. LABORATORY DATA: Reviewed. IMPRESSION: Major neurocognitive disorder, early Alzheimer, vascular with delusion, depression; anxiety disorder, unspecified; impulse control disorder, unspecified, urinary tract infection. PLAN: Continue current psychotropics mentioned in my initial note. Treat the urinary tract infection. Adjust further as clinically indicated. MAN Sera MART MD DR: KHADAR/mariza JOB#: [id number] / [id number]
--- NOTE | 2016-11-11 09:50 | PN ---
DATE: 11/10/2016 PSYCHIATRIC PROGRESS NOTE This is a late entry for 11/10/2016 covers elements not covered in my initial note. SUBJECTIVE: The patient was staffed at a treatment team meeting with the entire team morning of 11/10/2016. Social service staff states he need a new placement. The patient's daughter, Janae attended this conference reviewed the patient's history diagnosis. There is no past history of alcohol abuse. REVIEW OF SYSTEMS: No CV, , pulmonary, eye, ENT system symptoms on review. MENTAL STATUS EXAM: Oriented to himself and situation. Speech has some latency, coherent flow and volume. Abstraction fair, computation impaired, language function intact, attention span short, mood and affect withdrawn. LABORATORY DATA: Reviewed. IMPRESSION: Major neurocognitive disorder, early Alzheimer, vascular with depression, delusion, behavioral disturbance; anxiety disorder, unspecified, delusional disorder, major depressive disorder with psychotic features. PLAN: Continue Seroquel, Zoloft at current dosage along with melatonin, and Zyprexa p.r.n. As noted in the initial note history from family indicates he was living at home until about 06/2016 and was at [facility] for a few days recently and probably will need new placement. DEANA MART MD DR: KHADAR/mariza JOB#: [id number] / [id number]
[2016-11-11] MEDS ORDERED: PNEUMOC CONJ VACC 23-VALENT 0.5 ML VIAL. VAX IM ONE (10:15)
[2016-11-11 12:14] LABS: ALBUM 3.5 g/dL (2.9-4.4); ALPHA 1 0.3 g/dL (0.0-0.4); ALPHA 2 0.8 g/dL (0.4-1.0); BETA 1.2 g/dL (0.7-1.3); GAMMA 1.7 g/dL (0.4-1.8); PROTEIN TOTAL 7.6 g/dL (6.0-8.5); SPEP AG RATIO 0.9 (0.7-1.7)
[2016-11-11 15:43] VITALS: BP 162/77
[2016-11-11] MEDS: MELATONIN 3 MG TABLET PO SCH (20:45)
--- NOTE | 2016-11-11 21:10 | PDOC ---
Exam Bernabe Demential Exam: Bernabe Note: Please also refer to the separate dictated note~for this date of service dictated separately.~Patient seen individually. Discussed the patient with Nursing staff reviewed the chart.~Reviewed interim history and current functioning. Reviewed vital signs,~Labs/ Radiology~and current medications noted below. Continue current treatment with the changes noted in the dictated addendum note Assessment: Vital Signs: Vital Signs Date Time Temp Pulse Resp B/P Pulse Ox O2 Delivery O2 Flow Rate FiO2 11/11/16 20:32 61 162/77 11/11/16 15:43 98.5 18 100 11/09/16 15:41 Room Air I&O Intake and Output 11/11/16 07:00 Intake Total 1440 ml Balance 1440 ml Intake Oral 1440 ml Current Medications: Meds: Current Medications Quetiapine Fumarate (SEROquel) 12.5 mg BID92 PO Last administered on 11/11/16 14:53; Start 11/08/16 at 09:00; Stop 11/11/16 at 18:30; Status DC Quetiapine Fumarate (SEROquel) 12.5 mg PRN TID PRN PO ANXIETY / AGITATION; Start 11/07/16 at 19:30 Quetiapine Fumarate (SEROquel) 25 mg HS PO Last administered on 11/11/16 20:44 ; Start 11/07/16 at 21:00 Ascorbic Acid (Vitamin C) 500 mg DAILY PO Last administered on 11/11/16 09:43 ; Start 11/08/16 at 09:00 Aspirin (Children'S Aspirin) 81 mg DAILY PO Last administered on 11/11/16 09: 42; Start 11/08/16 at 09:00 Vitamin D (Vitamin D3) 1,000 unit DAILY PO Last administered on 11/11/16 09:44 ; Start 11/08/16 at 09:00 Ibuprofen (Motrin) 400 mg PRN TID PRN PO PAIN; Start 11/07/16 at 19:45 Levothyroxine Sodium (Synthroid) 75 mcg DAILY06 PO Last administered on 06:03; Start 11/08/16 at 06:00 Metoprolol Succinate (Toprol Xl) 25 mg DAILY PO Last administered on 11/09/16 08:31; Start 11/08/16 at 09:00; Stop 11/09/16 at 17:46; Status DC Cyanocobalamin (Vitamin B-12) 500 mcg DAILY PO Last administered on 11/11/16 09:42; Start 11/08/16 at 09:00 Melatonin 4.5 mg HS PO Last administered on 11/11/16 20:45; Start 11/07/16 at 21:00 Multivitamins/ Calcium (Thera-M Plus) 1 tab DAILY PO Last administered on 09:44; Start 11/08/16 at 09:00 Sodium Chloride ([place] Saline Nasal) 1 isaura PRN QID PRN NS Dry Nasal Passages; Start 11/07/16 at 20:00 Non-Formulary Medication 8,000 unit DAILY PO Supplement; Start 11/08/16 at 09:00 ; Stop 11/08/16 at 09:00; Status DC Acetaminophen (Tylenol) 650 mg PRN Q6HRS PRN PO PAIN / TEMP; Start 11/07/16 at 19:45 Multi-Ingredient Ointment (Analgesic [place]) 1 isaura PRN QID PRN TP MUSCLE PAIN; Start 11/07/16 at 19:45 Al Hydroxide/Mg Hydroxide (Mylanta Plus Xs) 15 ml PRN AFTMEALHC PRN PO DYSPEPSIA; Start 11/07/16 at 19:45 Magnesium Hydroxide (Milk Of Magnesia) 2,400 mg PRN QHS PRN PO CONSTIPATION; Start 11/07/16 at 19:45 Olanzapine (Zyprexa Zydis) 2.5 mg PRN Q2HR PRN PO PSYCHOSIS Last administered on 11/09/16 09:27; Start 11/07/16 at 21:15 Pneumococcal Polyvalent Vaccine (Pneumovax 23) 0.5 ml ONCE ONCE VAX IM ; Start 11/08/16 at 09:00; Stop 11/08/16 at 09:01; Status DC Ceftriaxone Sodium (Rocephin Im) 1 gm 1X ONCE IM ; Start 11/08/16 at 18:00; Stop 11/08/16 at 18:01; Status Cancel Vitamin A 10,000 unit DAILY PO Last administered on 11/11/16 09:41; Start at 09:00 Ceftriaxone Sodium (Rocephin Im) 1 gm 1X ONCE IM Last administered on 09:22; Start 11/09/16 at 09:00; Stop 11/09/16 at 09:01; Status DC Metoprolol Tartrate (Lopressor) 25 mg BID PO Last administered on 11/11/16 20: 32; Start 11/09/16 at 21:00 Sertraline HCl (Zoloft) 50 mg DAILY PO Last administered on 11/11/16 09:42; Start 11/10/16 at 09:00 Cefpodoxime Proxetil (Vantin) 200 mg BID PO Last administered on 11/11/16 09: 42; Start 11/10/16 at 21:00; Stop 11/11/16 at 13:09; Status DC Pneumococcal Polyvalent Vaccine (Pneumovax 23) 0.5 ml ONCE ONCE VAX IM Last administered on 11/11/16 09:56; Start 11/11/16 at 10:15; Stop 11/11/16 at 10:16 ; Status DC Cefpodoxime Proxetil (Vantin) 200 mg DAILY PO ; Start 11/12/16 at 09:00 Quetiapine Fumarate (SEROquel) 12.5 mg Q24H PO ; Start 11/12/16 at 14:00 Active Scripts Active Reported Quetiapine Fumarate 25 Mg Tablet 12.5 Mg PO PRN TID PRN Ibuprofen 200 Mg Tablet 400 Mg PO PRN TID PRN [place] Saline Nasal Gel [place] (Sodium Chloride/Aloe Vera) 22 Ml [place] 2 Sprays NS PRN QID PRN Levothyroxine Sodium 75 Mcg Tablet 75 Mcg PO DAILY06 Melatonin 5 Mg Tablet 5 Mg PO HS Quetiapine Fumarate 25 Mg Tablet 25 Mg PO HS Quetiapine Fumarate 25 Mg Tablet 12.5 Mg PO BID Vitamin A 8,000 Unit Capsule 8,000 Unit PO DAILY Daily Multiple Vitamin (Multivitamin) 1 Each Tablet 1 Each PO DAILY Toprol Xl (Metoprolol Succinate) 25 Mg Tab.er.24h 25 Mg PO DAILY Vitamin B-12 (Cyanocobalamin (Vitamin B-12)) 500 Mcg Tablet 500 Mcg PO DAILY Vitamin D3 (Cholecalciferol (Vitamin D3)) 1,000 Unit Tablet 1,000 Unit PO DAILY Children's Aspirin (Aspirin) 81 Mg Tab.chew 81 Mg PO DAILY Ascorbic Acid 500 Mg Tablet 500 Mg PO DAILY Diagnosis: Problems: (1) Renal insufficiency (2) Medical clearance for psychiatric admission (3) Anxiety disorder (4) Impulse control disorder (5) Major depressive disorder, recurrent episode (6) Dementia in Alzheimer's disease with depression (7) Dementia in Alzheimer's disease with delusions DEANA MART MD Nov 11, 2016 21:10
[2016-11-12] MEDS: LEVOTHYROXINE 75 MCG TABLET PO SCH (05:22)
[2016-11-12 06:04] VITALS: BP 172/75
[2016-11-12] MEDS: ASCORBIC ACID 500 MG TABLET PO SCH (08:11)
[2016-11-12] MEDS: CHOLECALCIFEROL (VITAMIN D3) 1,000 UNIT TABLET PO SCH (08:11)
[2016-11-12] MEDS: CYANOCOBALAMIN (VITAMIN B-12) 250 MCG TABLET PO SCH (08:11)
[2016-11-12] MEDS: SERTRALINE 25 MG TABLET. PO SCH (08:11)
[2016-11-12] MEDS: ASPIRIN 81 MG TAB.CHEW PO SCH (08:11)
[2016-11-12] MEDS: MULTIVITAMIN with MINERAL TABLET. PO SCH (08:11)
[2016-11-12] MEDS: METOPROLOL TART IMMED RELEASE 25 MG TABLET PO SCH ×2 (08:12→20:44)
[2016-11-12] MEDS: VITAMIN A 10,000 UNIT CAPSULE. PO SCH (08:12)
[2016-11-12] MEDS: CEFPODOXIME PROXETIL 200 MG TABLET PO SCH (08:12)
--- NOTE | 2016-11-12 09:50 | PDOC ---
Exam Bernabe Demential Exam: Bernabe Note: Please also refer to the separate dictated note~for this date of service dictated separately.~Patient seen individually. Discussed the patient with Nursing staff reviewed the chart.~Reviewed interim history and current functioning. Reviewed vital signs,~Labs/ Radiology~and current medications noted below. Continue current treatment with the changes noted in the dictated addendum note Assessment: Vital Signs: Vital Signs Date Time Temp Pulse Resp B/P Pulse Ox O2 Delivery O2 Flow Rate FiO2 11/12/16 08:12 58 172/75 11/12/16 06:04 97.5 16 98 11/09/16 15:41 Room Air I&O Intake and Output 11/12/16 07:00 Intake Total 720 ml Balance 720 ml Intake Oral 720 ml Current Medications: Meds: Current Medications Quetiapine Fumarate (SEROquel) 12.5 mg BID92 PO Last administered on 11/11/16 14:53; Start 11/08/16 at 09:00; Stop 11/11/16 at 18:30; Status DC Quetiapine Fumarate (SEROquel) 12.5 mg PRN TID PRN PO ANXIETY / AGITATION; Start 11/07/16 at 19:30 Quetiapine Fumarate (SEROquel) 25 mg HS PO Last administered on 11/11/16 20:44 ; Start 11/07/16 at 21:00 Ascorbic Acid (Vitamin C) 500 mg DAILY PO Last administered on 11/12/16 08:11 ; Start 11/08/16 at 09:00 Aspirin (Children'S Aspirin) 81 mg DAILY PO Last administered on 11/12/16 08: 11; Start 11/08/16 at 09:00 Vitamin D (Vitamin D3) 1,000 unit DAILY PO Last administered on 11/12/16 08:11 ; Start 11/08/16 at 09:00 Ibuprofen (Motrin) 400 mg PRN TID PRN PO PAIN; Start 11/07/16 at 19:45 Levothyroxine Sodium (Synthroid) 75 mcg DAILY06 PO Last administered on 05:22; Start 11/08/16 at 06:00 Metoprolol Succinate (Toprol Xl) 25 mg DAILY PO Last administered on 11/09/16 08:31; Start 11/08/16 at 09:00; Stop 11/09/16 at 17:46; Status DC Cyanocobalamin (Vitamin B-12) 500 mcg DAILY PO Last administered on 11/12/16 08:11; Start 11/08/16 at 09:00 Melatonin 4.5 mg HS PO Last administered on 11/11/16 20:45; Start 11/07/16 at 21:00 Multivitamins/ Calcium (Thera-M Plus) 1 tab DAILY PO Last administered on 08:11; Start 11/08/16 at 09:00 Sodium Chloride ([place] Saline Nasal) 1 isaura PRN QID PRN NS Dry Nasal Passages; Start 11/07/16 at 20:00 Non-Formulary Medication 8,000 unit DAILY PO Supplement; Start 11/08/16 at 09:00 ; Stop 11/08/16 at 09:00; Status DC Acetaminophen (Tylenol) 650 mg PRN Q6HRS PRN PO PAIN / TEMP; Start 11/07/16 at 19:45 Multi-Ingredient Ointment (Analgesic [place]) 1 isaura PRN QID PRN TP MUSCLE PAIN; Start 11/07/16 at 19:45 Al Hydroxide/Mg Hydroxide (Mylanta Plus Xs) 15 ml PRN AFTMEALHC PRN PO DYSPEPSIA; Start 11/07/16 at 19:45 Magnesium Hydroxide (Milk Of Magnesia) 2,400 mg PRN QHS PRN PO CONSTIPATION; Start 11/07/16 at 19:45 Olanzapine (Zyprexa Zydis) 2.5 mg PRN Q2HR PRN PO PSYCHOSIS Last administered on 11/09/16 09:27; Start 11/07/16 at 21:15 Pneumococcal Polyvalent Vaccine (Pneumovax 23) 0.5 ml ONCE ONCE VAX IM ; Start 11/08/16 at 09:00; Stop 11/08/16 at 09:01; Status DC Ceftriaxone Sodium (Rocephin Im) 1 gm 1X ONCE IM ; Start 11/08/16 at 18:00; Stop 11/08/16 at 18:01; Status Cancel Vitamin A 10,000 unit DAILY PO Last administered on 11/12/16 08:12; Start at 09:00 Ceftriaxone Sodium (Rocephin Im) 1 gm 1X ONCE IM Last administered on 09:22; Start 11/09/16 at 09:00; Stop 11/09/16 at 09:01; Status DC Metoprolol Tartrate (Lopressor) 25 mg BID PO Last administered on 11/12/16 08: 12; Start 11/09/16 at 21:00 Sertraline HCl (Zoloft) 50 mg DAILY PO Last administered on 11/12/16 08:11; Start 11/10/16 at 09:00 Cefpodoxime Proxetil (Vantin) 200 mg BID PO Last administered on 11/11/16 09: 42; Start 11/10/16 at 21:00; Stop 11/11/16 at 13:09; Status DC Pneumococcal Polyvalent Vaccine (Pneumovax 23) 0.5 ml ONCE ONCE VAX IM Last administered on 11/11/16 09:56; Start 11/11/16 at 10:15; Stop 11/11/16 at 10:16 ; Status DC Cefpodoxime Proxetil (Vantin) 200 mg DAILY PO Last administered on 11/12/16 08 :12; Start 11/12/16 at 09:00 Quetiapine Fumarate (SEROquel) 12.5 mg Q24H PO ; Start 11/12/16 at 14:00 Active Scripts Active Reported Quetiapine Fumarate 25 Mg Tablet 12.5 Mg PO PRN TID PRN Ibuprofen 200 Mg Tablet 400 Mg PO PRN TID PRN [place] Saline Nasal Gel [place] (Sodium Chloride/Aloe Vera) 22 Ml [place] 2 Sprays NS PRN QID PRN Levothyroxine Sodium 75 Mcg Tablet 75 Mcg PO DAILY06 Melatonin 5 Mg Tablet 5 Mg PO HS Quetiapine Fumarate 25 Mg Tablet 25 Mg PO HS Quetiapine Fumarate 25 Mg Tablet 12.5 Mg PO BID Vitamin A 8,000 Unit Capsule 8,000 Unit PO DAILY Daily Multiple Vitamin (Multivitamin) 1 Each Tablet 1 Each PO DAILY Toprol Xl (Metoprolol Succinate) 25 Mg Tab.er.24h 25 Mg PO DAILY Vitamin B-12 (Cyanocobalamin (Vitamin B-12)) 500 Mcg Tablet 500 Mcg PO DAILY Vitamin D3 (Cholecalciferol (Vitamin D3)) 1,000 Unit Tablet 1,000 Unit PO DAILY Children's Aspirin (Aspirin) 81 Mg Tab.chew 81 Mg PO DAILY Ascorbic Acid 500 Mg Tablet 500 Mg PO DAILY Diagnosis: Problems: (1) Anxiety disorder (2) Impulse control disorder (3) Major depressive disorder, recurrent episode (4) Dementia in Alzheimer's disease with depression (5) Dementia in Alzheimer's disease with delusions DEANA MATR MD Nov 12, 2016 09:50
[2016-11-12 13:48] LABS: BASO # 0.1 x10^3/uL (0.0-0.2); BASO % 1 % (0-3); EOS # 0.3 x10^3/uL (0.0-0.7); EOS % 3 % (0-3); HEMATOCRIT 33.5 % (39.0-53.0); HEMOGLOBIN 11.1 g/dL (13.0-17.5); LYMPH # 1.5 x10^3/uL (1.0-4.8); LYMPH % 16 % (24-48); MEAN CORPUSCULAR HEMOGLOBIN 31 pg (25-35); MEAN CORPUSCULAR HGB CONC 33 g/dL (31-37); MEAN CORPUSCULAR VOLUME 93 fL (79-100); MONO # 0.6 x10^3/uL (0.0-1.1); MONO % 6 % (0-9); NEUT % 74 % (31-73); PLATELET COUNT 361 x10^3/uL (140-400); RED BLOOD COUNT 3.59 x10^6/uL (4.30-5.70); RED CELL DISTRIBUTION WIDTH 13.7 % (11.5-14.5); WHITE BLOOD COUNT 9.4 x10^3/uL (4.0-11.0)
[2016-11-12 13:59] LABS: ALBUMIN 3.2 g/dL (3.4-5.0); ALBUMIN/GLOBULIN RATIO 0.7 (1.0-1.7); CALCIUM 9.1 mg/dL (8.5-10.1); CREATININE 1.3 mg/dL (0.7-1.3); POTASSIUM 4.9 mmol/L (3.5-5.1); TOTAL BILIRUBIN 0.2 mg/dL (0.2-1.0); TOTAL PROTEIN 7.6 g/dL (6.4-8.2)
[2016-11-12] MEDS: QUEtiapine 25 MG TABLET. PO SCH ×2 (14:00→20:44)
[2016-11-12 16:20] VITALS: BP 164/64
[2016-11-12] MEDS: MELATONIN 3 MG TABLET PO SCH (20:46)
[2016-11-13] MEDS: LEVOTHYROXINE 75 MCG TABLET PO SCH (06:02)
--- NOTE | 2016-11-13 06:23 | PN ---
DATE: 11/11/2016 This is a late entry for 11/11/2016, covers elements not covered in my initial note. SUBJECTIVE: The patient has been sedated during the day. Ultrasound showed right renal cyst. He is deaf in the right ear. He has a hearing aid on the left side. He does have a UTI on Vantin. REVIEW OF SYSTEMS: Hard of hearing. No CV, , eye, or pulmonary system symptoms on review. MENTAL STATUS EXAM: Oriented to himself and situation. Speech moderate latency, often responses monosyllabic; abstraction fair, computation impaired; mood and affect somewhat withdrawn, little labile at times. LABORATORY DATA: Reviewed. IMPRESSION: Unchanged from initial note. PLAN: Continue current medications noted in my initial note. Treat the UTI. Adjust further as clinically indicated. MAN Sera MART MD DR: KHADAR/mariza JOB#: [id number] / [id number]
--- NOTE | 2016-11-13 06:26 | PN ---
DATE: 11/12/2016 This note covers elements not covered in my initial note. SUBJECTIVE: The patient refused to get out of his room to go to breakfast and this was held over for him in his room. He takes his meds in ice cream off and on. He still remains depressed, withdrawn. REVIEW OF SYSTEMS: Hard of hearing. No CV, , Pulmonary, eye system symptoms on review. MENTAL STATUS EXAM: Oriented to himself and situation. Speech coherent, low in volume, often responses monosyllabic; abstraction fair, computation impaired, language function intact, memory is impaired. IMPRESSION: Unchanged from initial note. PLAN: Increase Zoloft from 50 to 75 mg a day. Maintain Seroquel 12.5 t.i.d. p.r.n. and 12.5 at 1400 and 25 at bedtime, Zyprexa p.r.n., melatonin 4.58 mg at bedtime. Adjust as clinically indicated. MAN Sera MART MD DR: KHADAR/mariza JOB#: [id number] / [id number]
[2016-11-13 06:37] VITALS: BP 124/67
[2016-11-13] MEDS: METOPROLOL TART IMMED RELEASE 25 MG TABLET PO SCH ×2 (07:45→20:07)
[2016-11-13] MEDS: MULTIVITAMIN with MINERAL TABLET. PO SCH (07:45)
[2016-11-13] MEDS: ASCORBIC ACID 500 MG TABLET PO SCH (07:45)
[2016-11-13] MEDS: CHOLECALCIFEROL (VITAMIN D3) 1,000 UNIT TABLET PO SCH (07:45)
[2016-11-13] MEDS: ASPIRIN 81 MG TAB.CHEW PO SCH (07:45)
[2016-11-13] MEDS: CYANOCOBALAMIN (VITAMIN B-12) 250 MCG TABLET PO SCH (07:45)
[2016-11-13] MEDS: CEFPODOXIME PROXETIL 200 MG TABLET PO SCH (07:46)
[2016-11-13] MEDS: VITAMIN A 10,000 UNIT CAPSULE. PO SCH (07:46)
[2016-11-13] MEDS: SERTRALINE 25 MG TABLET. PO SCH (07:48)
[2016-11-13] MEDS: QUEtiapine 25 MG TABLET. PO SCH ×2 (12:55→20:07)
[2016-11-13 16:36] VITALS: BP 148/68
[2016-11-13] MEDS: MELATONIN 3 MG TABLET PO SCH (20:06)
--- NOTE | 2016-11-13 21:05 | PDOC ---
Exam Bernabe Demential Exam: Bernabe Note: Please also refer to the separate dictated note~for this date of service dictated separately.~Patient seen individually. Discussed the patient with Nursing staff reviewed the chart.~Reviewed interim history and current functioning. Reviewed vital signs,~Labs/ Radiology~and current medications noted below. Continue current treatment with the changes noted in the dictated addendum note Assessment: Vital Signs: Vital Signs Date Time Temp Pulse Resp B/P Pulse Ox O2 Delivery O2 Flow Rate FiO2 11/13/16 20:07 63 148/68 11/13/16 16:36 98.3 16 100 11/13/16 06:37 Room Air I&O Intake and Output 11/13/16 07:00 Intake Total 360 ml Balance 360 ml Intake Oral 360 ml Current Medications: Meds: Current Medications Quetiapine Fumarate (SEROquel) 12.5 mg BID92 PO Last administered on 11/11/16 14:53; Start 11/08/16 at 09:00; Stop 11/11/16 at 18:30; Status DC Quetiapine Fumarate (SEROquel) 12.5 mg PRN TID PRN PO ANXIETY / AGITATION; Start 11/07/16 at 19:30 Quetiapine Fumarate (SEROquel) 25 mg HS PO Last administered on 11/13/16 20:07 ; Start 11/07/16 at 21:00 Ascorbic Acid (Vitamin C) 500 mg DAILY PO Last administered on 11/13/16 07:45 ; Start 11/08/16 at 09:00 Aspirin (Children'S Aspirin) 81 mg DAILY PO Last administered on 11/13/16 07: 45; Start 11/08/16 at 09:00 Vitamin D (Vitamin D3) 1,000 unit DAILY PO Last administered on 11/13/16 07:45 ; Start 11/08/16 at 09:00 Ibuprofen (Motrin) 400 mg PRN TID PRN PO PAIN; Start 11/07/16 at 19:45 Levothyroxine Sodium (Synthroid) 75 mcg DAILY06 PO Last administered on 06:02; Start 11/08/16 at 06:00 Metoprolol Succinate (Toprol Xl) 25 mg DAILY PO Last administered on 11/09/16 08:31; Start 11/08/16 at 09:00; Stop 11/09/16 at 17:46; Status DC Cyanocobalamin (Vitamin B-12) 500 mcg DAILY PO Last administered on 11/13/16 07:45; Start 11/08/16 at 09:00 Melatonin 4.5 mg HS PO Last administered on 11/13/16 20:06; Start 11/07/16 at 21:00 Multivitamins/ Calcium (Thera-M Plus) 1 tab DAILY PO Last administered on 07:45; Start 11/08/16 at 09:00 Sodium Chloride ([place] Saline Nasal) 1 isaura PRN QID PRN NS Dry Nasal Passages; Start 11/07/16 at 20:00 Non-Formulary Medication 8,000 unit DAILY PO Supplement; Start 11/08/16 at 09:00 ; Stop 11/08/16 at 09:00; Status DC Acetaminophen (Tylenol) 650 mg PRN Q6HRS PRN PO PAIN / TEMP; Start 11/07/16 at 19:45 Multi-Ingredient Ointment (Analgesic [place]) 1 isaura PRN QID PRN TP MUSCLE PAIN; Start 11/07/16 at 19:45 Al Hydroxide/Mg Hydroxide (Mylanta Plus Xs) 15 ml PRN AFTMEALHC PRN PO DYSPEPSIA; Start 11/07/16 at 19:45 Magnesium Hydroxide (Milk Of Magnesia) 2,400 mg PRN QHS PRN PO CONSTIPATION; Start 11/07/16 at 19:45 Olanzapine (Zyprexa Zydis) 2.5 mg PRN Q2HR PRN PO PSYCHOSIS Last administered on 11/09/16 09:27; Start 11/07/16 at 21:15 Pneumococcal Polyvalent Vaccine (Pneumovax 23) 0.5 ml ONCE ONCE VAX IM ; Start 11/08/16 at 09:00; Stop 11/08/16 at 09:01; Status DC Ceftriaxone Sodium (Rocephin Im) 1 gm 1X ONCE IM ; Start 11/08/16 at 18:00; Stop 11/08/16 at 18:01; Status Cancel Vitamin A 10,000 unit DAILY PO Last administered on 11/13/16 07:46; Start at 09:00 Ceftriaxone Sodium (Rocephin Im) 1 gm 1X ONCE IM Last administered on 09:22; Start 11/09/16 at 09:00; Stop 11/09/16 at 09:01; Status DC Metoprolol Tartrate (Lopressor) 25 mg BID PO Last administered on 11/13/16 20: 07; Start 11/09/16 at 21:00 Sertraline HCl (Zoloft) 50 mg DAILY PO Last administered on 11/12/16 08:11; Start 11/10/16 at 09:00; Stop 11/12/16 at 12:11; Status DC Cefpodoxime Proxetil (Vantin) 200 mg BID PO Last administered on 11/11/16 09: 42; Start 11/10/16 at 21:00; Stop 11/11/16 at 13:09; Status DC Pneumococcal Polyvalent Vaccine (Pneumovax 23) 0.5 ml ONCE ONCE VAX IM Last administered on 11/11/16 09:56; Start 11/11/16 at 10:15; Stop 11/11/16 at 10:16 ; Status DC Cefpodoxime Proxetil (Vantin) 200 mg DAILY PO Last administered on 11/13/16 07 :46; Start 11/12/16 at 09:00 Quetiapine Fumarate (SEROquel) 12.5 mg Q24H PO Last administered on 11/13/16 12:55; Start 11/12/16 at 14:00 Sertraline HCl (Zoloft) 75 mg DAILY PO Last administered on 11/13/16 07:48; Start 11/13/16 at 09:00 Active Scripts Active Reported Quetiapine Fumarate 25 Mg Tablet 12.5 Mg PO PRN TID PRN Ibuprofen 200 Mg Tablet 400 Mg PO PRN TID PRN [place] Saline Nasal Gel [place] (Sodium Chloride/Aloe Vera) 22 Ml [place] 2 Sprays NS PRN QID PRN Levothyroxine Sodium 75 Mcg Tablet 75 Mcg PO DAILY06 Melatonin 5 Mg Tablet 5 Mg PO HS Quetiapine Fumarate 25 Mg Tablet 25 Mg PO HS Quetiapine Fumarate 25 Mg Tablet 12.5 Mg PO BID Vitamin A 8,000 Unit Capsule 8,000 Unit PO DAILY Daily Multiple Vitamin (Multivitamin) 1 Each Tablet 1 Each PO DAILY Toprol Xl (Metoprolol Succinate) 25 Mg Tab.er.24h 25 Mg PO DAILY Vitamin B-12 (Cyanocobalamin (Vitamin B-12)) 500 Mcg Tablet 500 Mcg PO DAILY Vitamin D3 (Cholecalciferol (Vitamin D3)) 1,000 Unit Tablet 1,000 Unit PO DAILY Children's Aspirin (Aspirin) 81 Mg Tab.chew 81 Mg PO DAILY Ascorbic Acid 500 Mg Tablet 500 Mg PO DAILY Diagnosis: Problems: (1) Renal insufficiency (2) Medical clearance for psychiatric admission (3) Anxiety disorder (4) Impulse control disorder (5) Major depressive disorder, recurrent episode (6) 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
[2016-11-14] MEDS: LEVOTHYROXINE 75 MCG TABLET PO SCH (05:26)
[2016-11-14 05:50] VITALS: BP 139/67
[2016-11-14] MEDS: ASPIRIN 81 MG TAB.CHEW PO SCH (07:56)
[2016-11-14] MEDS: METOPROLOL TART IMMED RELEASE 25 MG TABLET PO SCH ×2 (07:56→19:37)
[2016-11-14] MEDS: CHOLECALCIFEROL (VITAMIN D3) 1,000 UNIT TABLET PO SCH (07:56)
[2016-11-14] MEDS: MULTIVITAMIN with MINERAL TABLET. PO SCH (07:56)
[2016-11-14] MEDS: SERTRALINE 25 MG TABLET. PO SCH (07:56)
[2016-11-14] MEDS: VITAMIN A 10,000 UNIT CAPSULE. PO SCH (07:57)
[2016-11-14] MEDS: CEFPODOXIME PROXETIL 200 MG TABLET PO SCH (07:57)
[2016-11-14] MEDS: CYANOCOBALAMIN (VITAMIN B-12) 250 MCG TABLET PO SCH (07:57)
[2016-11-14] MEDS: ASCORBIC ACID 500 MG TABLET PO SCH (07:59)
[2016-11-14] MEDS: QUEtiapine 25 MG TABLET. PO SCH ×2 (12:48→19:38)
[2016-11-14 16:55] VITALS: BP 131/72
--- NOTE | 2016-11-14 19:14 | PDOC ---
Exam Bernabe Demential Exam: Bernabe Note: Please also refer to the separate dictated note~for this date of service dictated separately.~Patient seen individually. Discussed the patient with Nursing staff reviewed the chart.~Reviewed interim history and current functioning. Reviewed vital signs,~Labs/ Radiology~and current medications noted below. Continue current treatment with the changes noted in the dictated addendum note Assessment: Vital Signs: Vital Signs Date Time Temp Pulse Resp B/P Pulse Ox O2 Delivery O2 Flow Rate FiO2 11/14/16 16:55 98.2 56 16 131/72 97 11/13/16 06:37 Room Air I&O Intake and Output 11/14/16 07:00 Intake Total 1620 ml Balance 1620 ml Intake Oral 1620 ml Current Medications: Meds: Current Medications Quetiapine Fumarate (SEROquel) 12.5 mg BID92 PO Last administered on 11/11/16 14:53; Start 11/08/16 at 09:00; Stop 11/11/16 at 18:30; Status DC Quetiapine Fumarate (SEROquel) 12.5 mg PRN TID PRN PO ANXIETY / AGITATION; Start 11/07/16 at 19:30 Quetiapine Fumarate (SEROquel) 25 mg HS PO Last administered on 11/13/16 20:07 ; Start 11/07/16 at 21:00 Ascorbic Acid (Vitamin C) 500 mg DAILY PO Last administered on 11/14/16 07:59 ; Start 11/08/16 at 09:00 Aspirin (Children'S Aspirin) 81 mg DAILY PO Last administered on 11/14/16 07: 56; Start 11/08/16 at 09:00 Vitamin D (Vitamin D3) 1,000 unit DAILY PO Last administered on 11/14/16 07:56 ; Start 11/08/16 at 09:00 Ibuprofen (Motrin) 400 mg PRN TID PRN PO PAIN; Start 11/07/16 at 19:45 Levothyroxine Sodium (Synthroid) 75 mcg DAILY06 PO Last administered on 05:26; Start 11/08/16 at 06:00 Metoprolol Succinate (Toprol Xl) 25 mg DAILY PO Last administered on 11/09/16 08:31; Start 11/08/16 at 09:00; Stop 11/09/16 at 17:46; Status DC Cyanocobalamin (Vitamin B-12) 500 mcg DAILY PO Last administered on 11/14/16 07:57; Start 11/08/16 at 09:00 Melatonin 4.5 mg HS PO Last administered on 11/13/16 20:06; Start 11/07/16 at 21:00 Multivitamins/ Calcium (Thera-M Plus) 1 tab DAILY PO Last administered on 07:56; Start 11/08/16 at 09:00 Sodium Chloride ([place] Saline Nasal) 1 isaura PRN QID PRN NS Dry Nasal Passages; Start 11/07/16 at 20:00 Non-Formulary Medication 8,000 unit DAILY PO Supplement; Start 11/08/16 at 09:00 ; Stop 11/08/16 at 09:00; Status DC Acetaminophen (Tylenol) 650 mg PRN Q6HRS PRN PO PAIN / TEMP; Start 11/07/16 at 19:45 Multi-Ingredient Ointment (Analgesic [place]) 1 isaura PRN QID PRN TP MUSCLE PAIN; Start 11/07/16 at 19:45 Al Hydroxide/Mg Hydroxide (Mylanta Plus Xs) 15 ml PRN AFTMEALHC PRN PO DYSPEPSIA; Start 11/07/16 at 19:45 Magnesium Hydroxide (Milk Of Magnesia) 2,400 mg PRN QHS PRN PO CONSTIPATION; Start 11/07/16 at 19:45 Olanzapine (Zyprexa Zydis) 2.5 mg PRN Q2HR PRN PO PSYCHOSIS Last administered on 11/09/16 09:27; Start 11/07/16 at 21:15 Pneumococcal Polyvalent Vaccine (Pneumovax 23) 0.5 ml ONCE ONCE VAX IM ; Start 11/08/16 at 09:00; Stop 11/08/16 at 09:01; Status DC Ceftriaxone Sodium (Rocephin Im) 1 gm 1X ONCE IM ; Start 11/08/16 at 18:00; Stop 11/08/16 at 18:01; Status Cancel Vitamin A 10,000 unit DAILY PO Last administered on 11/14/16 07:57; Start at 09:00 Ceftriaxone Sodium (Rocephin Im) 1 gm 1X ONCE IM Last administered on 09:22; Start 11/09/16 at 09:00; Stop 11/09/16 at 09:01; Status DC Metoprolol Tartrate (Lopressor) 25 mg BID PO Last administered on 11/14/16 07: 56; Start 11/09/16 at 21:00 Sertraline HCl (Zoloft) 50 mg DAILY PO Last administered on 11/12/16 08:11; Start 11/10/16 at 09:00; Stop 11/12/16 at 12:11; Status DC Cefpodoxime Proxetil (Vantin) 200 mg BID PO Last administered on 11/11/16 09: 42; Start 11/10/16 at 21:00; Stop 11/11/16 at 13:09; Status DC Pneumococcal Polyvalent Vaccine (Pneumovax 23) 0.5 ml ONCE ONCE VAX IM Last administered on 11/11/16 09:56; Start 11/11/16 at 10:15; Stop 11/11/16 at 10:16 ; Status DC Cefpodoxime Proxetil (Vantin) 200 mg DAILY PO Last administered on 11/14/16 07 :57; Start 11/12/16 at 09:00 Quetiapine Fumarate (SEROquel) 12.5 mg Q24H PO Last administered on 11/14/16 12:48; Start 11/12/16 at 14:00 Sertraline HCl (Zoloft) 75 mg DAILY PO Last administered on 11/14/16 07:56; Start 11/13/16 at 09:00 Active Scripts Active Reported Quetiapine Fumarate 25 Mg Tablet 12.5 Mg PO PRN TID PRN Ibuprofen 200 Mg Tablet 400 Mg PO PRN TID PRN [place] Saline Nasal Gel [place] (Sodium Chloride/Aloe Vera) 22 Ml [place] 2 Sprays NS PRN QID PRN Levothyroxine Sodium 75 Mcg Tablet 75 Mcg PO DAILY06 Melatonin 5 Mg Tablet 5 Mg PO HS Quetiapine Fumarate 25 Mg Tablet 25 Mg PO HS Quetiapine Fumarate 25 Mg Tablet 12.5 Mg PO BID Vitamin A 8,000 Unit Capsule 8,000 Unit PO DAILY Daily Multiple Vitamin (Multivitamin) 1 Each Tablet 1 Each PO DAILY Toprol Xl (Metoprolol Succinate) 25 Mg Tab.er.24h 25 Mg PO DAILY Vitamin B-12 (Cyanocobalamin (Vitamin B-12)) 500 Mcg Tablet 500 Mcg PO DAILY Vitamin D3 (Cholecalciferol (Vitamin D3)) 1,000 Unit Tablet 1,000 Unit PO DAILY Children's Aspirin (Aspirin) 81 Mg Tab.chew 81 Mg PO DAILY Ascorbic Acid 500 Mg Tablet 500 Mg PO DAILY Diagnosis: Problems: (1) Renal insufficiency (2) Medical clearance for psychiatric admission (3) Anxiety disorder (4) Impulse control disorder (5) Major depressive disorder, recurrent episode (6) 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
[2016-11-14] MEDS: MELATONIN 3 MG TABLET PO SCH (19:38)
[2016-11-15] MEDS: LEVOTHYROXINE 75 MCG TABLET PO SCH (06:13)
[2016-11-15 06:19] VITALS: BP 155/58
[2016-11-15] MEDS: METOPROLOL TART IMMED RELEASE 25 MG TABLET PO SCH ×2 (09:00→19:59)
[2016-11-15] MEDS: VITAMIN A 10,000 UNIT CAPSULE. PO SCH (09:20)
[2016-11-15] MEDS: CYANOCOBALAMIN (VITAMIN B-12) 250 MCG TABLET PO SCH (09:21)
[2016-11-15] MEDS: ASPIRIN 81 MG TAB.CHEW PO SCH (09:21)
[2016-11-15] MEDS: CHOLECALCIFEROL (VITAMIN D3) 1,000 UNIT TABLET PO SCH (09:21)
[2016-11-15] MEDS: ASCORBIC ACID 500 MG TABLET PO SCH (09:22)
[2016-11-15] MEDS: SERTRALINE 25 MG TABLET. PO SCH (09:22)
[2016-11-15] MEDS: MULTIVITAMIN with MINERAL TABLET. PO SCH (09:24)
[2016-11-15] MEDS: CEFPODOXIME PROXETIL 200 MG TABLET PO SCH (09:24)
--- NOTE | 2016-11-15 09:25 | PN ---
DATE: 11/13/2016 SUBJECTIVE: This is a late entry 11/13/2016, covers elements not covered in my initial note. The patient remains somewhat withdrawn and paranoid. Takes his medications whole, especially at night. During the day on 11/13/2016, he took his meds in yogurt. He is somewhat grandiose when nursing staff questioned him on if he knew where he was. He said he was not in the hospital that he had built "[facility] the hospital." Daughter has visited him and they felt he was doing "much better." REVIEW OF SYSTEMS: No CV, , pulmonary, or eye system symptoms on review. Reliability poor. MENTAL STATUS EXAM: Oriented to himself and situation. Speech coherent. He has some latency and often responses monosyllabic. Abstraction fair, computation impaired, and language function intact. Attention span short and language function intact. Mood and affect withdrawn. LABORATORY DATA: Reviewed. IMPRESSION: Major neurocognitive disorder, Alzheimer, vascular with depression, delusions and behavioral disturbance, major depressive disorder with psychotic features. Anxiety disorder, unspecified; and status post urinary tract infection. PLAN: Treat the UTI. Continue psychotropics mentioned in my initial note. Make further adjustments as clinically indicated. May need to increase Zoloft in due course. MAN Sera MART MD DR: KHADAR/mariza JOB#: [id number] / [id number]
[2016-11-15] MEDS: QUEtiapine 25 MG TABLET. PO SCH ×2 (14:07→19:59)
[2016-11-15 15:47] VITALS: BP 168/64
[2016-11-15] MEDS: MELATONIN 3 MG TABLET PO SCH (19:59)
[2016-11-16] MEDS: LEVOTHYROXINE 75 MCG TABLET PO SCH (05:35)
[2016-11-16 05:55] VITALS: BP 163/61
[2016-11-16] MEDS: CEFPODOXIME PROXETIL 200 MG TABLET PO SCH (07:47)
[2016-11-16] MEDS: SERTRALINE 25 MG TABLET. PO SCH (07:47)
[2016-11-16] MEDS: MULTIVITAMIN with MINERAL TABLET. PO SCH (07:47)
[2016-11-16] MEDS: CYANOCOBALAMIN (VITAMIN B-12) 250 MCG TABLET PO SCH (07:48)
[2016-11-16] MEDS: METOPROLOL TART IMMED RELEASE 25 MG TABLET PO SCH ×2 (07:48→19:15)
[2016-11-16] MEDS: ASCORBIC ACID 500 MG TABLET PO SCH (07:48)
[2016-11-16] MEDS: VITAMIN A 10,000 UNIT CAPSULE. PO SCH (07:48)
[2016-11-16] MEDS: ASPIRIN 81 MG TAB.CHEW PO SCH (07:48)
[2016-11-16] MEDS: CHOLECALCIFEROL (VITAMIN D3) 1,000 UNIT TABLET PO SCH (07:48)
[2016-11-16] MEDS: QUEtiapine 25 MG TABLET. PO SCH ×2 (14:12→19:16)
[2016-11-16 16:12] VITALS: BP 164/76
[2016-11-16] MEDS: MELATONIN 3 MG TABLET PO SCH (19:16)
--- NOTE | 2016-11-16 21:08 | PDOC ---
Exam Bernabe Demential Exam: Bernabe Note: Please also refer to the separate dictated note~for this date of service dictated separately.~Patient seen individually. Discussed the patient with Nursing staff reviewed the chart.~Reviewed interim history and current functioning. Reviewed vital signs,~Labs/ Radiology~and current medications noted below. Continue current treatment with the changes noted in the dictated addendum note Assessment: Vital Signs: Vital Signs Date Time Temp Pulse Resp B/P Pulse Ox O2 Delivery O2 Flow Rate FiO2 11/16/16 19:15 64 164/76 11/16/16 16:12 97.7 18 98 11/13/16 06:37 Room Air I&O Intake and Output 11/16/16 07:00 Intake Total 1440 ml Balance 1440 ml Intake Oral 1440 ml Current Medications: Meds: Current Medications Quetiapine Fumarate (SEROquel) 12.5 mg BID92 PO Last administered on 11/11/16 14:53; Start 11/08/16 at 09:00; Stop 11/11/16 at 18:30; Status DC Quetiapine Fumarate (SEROquel) 12.5 mg PRN TID PRN PO ANXIETY / AGITATION; Start 11/07/16 at 19:30 Quetiapine Fumarate (SEROquel) 25 mg HS PO Last administered on 11/16/16 19:16 ; Start 11/07/16 at 21:00 Ascorbic Acid (Vitamin C) 500 mg DAILY PO Last administered on 11/16/16 07:48 ; Start 11/08/16 at 09:00 Aspirin (Children'S Aspirin) 81 mg DAILY PO Last administered on 11/16/16 07: 48; Start 11/08/16 at 09:00 Vitamin D (Vitamin D3) 1,000 unit DAILY PO Last administered on 11/16/16 07:48 ; Start 11/08/16 at 09:00 Ibuprofen (Motrin) 400 mg PRN TID PRN PO PAIN; Start 11/07/16 at 19:45 Levothyroxine Sodium (Synthroid) 75 mcg DAILY06 PO Last administered on 05:35; Start 11/08/16 at 06:00 Metoprolol Succinate (Toprol Xl) 25 mg DAILY PO Last administered on 11/09/16 08:31; Start 11/08/16 at 09:00; Stop 11/09/16 at 17:46; Status DC Cyanocobalamin (Vitamin B-12) 500 mcg DAILY PO Last administered on 11/16/16 07:48; Start 11/08/16 at 09:00 Melatonin 4.5 mg HS PO Last administered on 11/16/16 19:16; Start 11/07/16 at 21:00 Multivitamins/ Calcium (Thera-M Plus) 1 tab DAILY PO Last administered on 07:47; Start 11/08/16 at 09:00 Sodium Chloride ([place] Saline Nasal) 1 isaura PRN QID PRN NS Dry Nasal Passages; Start 11/07/16 at 20:00 Non-Formulary Medication 8,000 unit DAILY PO Supplement; Start 11/08/16 at 09:00 ; Stop 11/08/16 at 09:00; Status DC Acetaminophen (Tylenol) 650 mg PRN Q6HRS PRN PO PAIN / TEMP; Start 11/07/16 at 19:45 Multi-Ingredient Ointment (Analgesic [place]) 1 isaura PRN QID PRN TP MUSCLE PAIN; Start 11/07/16 at 19:45 Al Hydroxide/Mg Hydroxide (Mylanta Plus Xs) 15 ml PRN AFTMEALHC PRN PO DYSPEPSIA; Start 11/07/16 at 19:45 Magnesium Hydroxide (Milk Of Magnesia) 2,400 mg PRN QHS PRN PO CONSTIPATION; Start 11/07/16 at 19:45 Olanzapine (Zyprexa Zydis) 2.5 mg PRN Q2HR PRN PO PSYCHOSIS Last administered on 11/09/16 09:27; Start 11/07/16 at 21:15 Pneumococcal Polyvalent Vaccine (Pneumovax 23) 0.5 ml ONCE ONCE VAX IM ; Start 11/08/16 at 09:00; Stop 11/08/16 at 09:01; Status DC Ceftriaxone Sodium (Rocephin Im) 1 gm 1X ONCE IM ; Start 11/08/16 at 18:00; Stop 11/08/16 at 18:01; Status Cancel Vitamin A 10,000 unit DAILY PO Last administered on 11/16/16 07:48; Start at 09:00 Ceftriaxone Sodium (Rocephin Im) 1 gm 1X ONCE IM Last administered on 09:22; Start 11/09/16 at 09:00; Stop 11/09/16 at 09:01; Status DC Metoprolol Tartrate (Lopressor) 25 mg BID PO Last administered on 11/16/16 19: 15; Start 11/09/16 at 21:00 Sertraline HCl (Zoloft) 50 mg DAILY PO Last administered on 11/12/16 08:11; Start 11/10/16 at 09:00; Stop 11/12/16 at 12:11; Status DC Cefpodoxime Proxetil (Vantin) 200 mg BID PO Last administered on 11/11/16 09: 42; Start 11/10/16 at 21:00; Stop 11/11/16 at 13:09; Status DC Pneumococcal Polyvalent Vaccine (Pneumovax 23) 0.5 ml ONCE ONCE VAX IM Last administered on 11/11/16 09:56; Start 11/11/16 at 10:15; Stop 11/11/16 at 10:16 ; Status DC Cefpodoxime Proxetil (Vantin) 200 mg DAILY PO Last administered on 11/16/16 07 :47; Start 11/12/16 at 09:00 Quetiapine Fumarate (SEROquel) 12.5 mg Q24H PO Last administered on 11/16/16 14:12; Start 11/12/16 at 14:00 Sertraline HCl (Zoloft) 75 mg DAILY PO Last administered on 11/16/16 07:47; Start 11/13/16 at 09:00 Active Scripts Active Reported Quetiapine Fumarate 25 Mg Tablet 12.5 Mg PO PRN TID PRN Ibuprofen 200 Mg Tablet 400 Mg PO PRN TID PRN [place] Saline Nasal Gel [place] (Sodium Chloride/Aloe Vera) 22 Ml [place] 2 Sprays NS PRN QID PRN Levothyroxine Sodium 75 Mcg Tablet 75 Mcg PO DAILY06 Melatonin 5 Mg Tablet 5 Mg PO HS Quetiapine Fumarate 25 Mg Tablet 25 Mg PO HS Quetiapine Fumarate 25 Mg Tablet 12.5 Mg PO BID Vitamin A 8,000 Unit Capsule 8,000 Unit PO DAILY Daily Multiple Vitamin (Multivitamin) 1 Each Tablet 1 Each PO DAILY Toprol Xl (Metoprolol Succinate) 25 Mg Tab.er.24h 25 Mg PO DAILY Vitamin B-12 (Cyanocobalamin (Vitamin B-12)) 500 Mcg Tablet 500 Mcg PO DAILY Vitamin D3 (Cholecalciferol (Vitamin D3)) 1,000 Unit Tablet 1,000 Unit PO DAILY Children's Aspirin (Aspirin) 81 Mg Tab.chew 81 Mg PO DAILY Ascorbic Acid 500 Mg Tablet 500 Mg PO DAILY Diagnosis: Problems: (1) Renal insufficiency (2) Medical clearance for psychiatric admission (3) Anxiety disorder (4) Impulse control disorder (5) Major depressive disorder, recurrent episode (6) Dementia in Alzheimer's disease with depression (7) Dementia in Alzheimer's disease with delusions DEANA MART MD Nov 16, 2016 21:08
[2016-11-17] MEDS: LEVOTHYROXINE 75 MCG TABLET PO SCH (05:38)
[2016-11-17 06:14] VITALS: BP 166/65
--- NOTE | 2016-11-17 08:57 | PN ---
DATE: 11/14/2016 PSYCHIATRIC PROGRESS NOTE This note covers elements not covered in my initial note. SUBJECTIVE: Per nursing report, the patient remains somewhat withdrawn, little paranoid, but doing better as his UTI has been treated, remains confused. REVIEW OF SYSTEMS: No CV, , Pulmonary, eye, ENT system symptoms on review. MENTAL STATUS EXAM: Oriented to himself. Insight, judgment, recent and remote memory, attention, concentration, fund of knowledge poor, consistent with his diagnosis. LABORATORY DATA: Reviewed. IMPRESSION: Major neurocognitive disorder, Alzheimer, vascular with depression, delusion, behavioral disturbance. Rest diagnosis unchanged from initial note. PLAN: Continue psychotropics mentioned in my initial note including the increase Zoloft 75 mg a day, Seroquel at current doses, Zyprexa p.r.n., melatonin. MAN Sera MART MD DR: KHADAR/mariza JOB#: [id number] / [id number]
--- NOTE | 2016-11-17 08:58 | PN ---
DATE: PSYCHIATRIC PROGRESS NOTE This is a late entry for 11/15/2016 and covers elements not covered in my initial note of 11/15/2016. SUBJECTIVE: Per nursing report, the patient is still withdrawn to room, but acting politely towards others, a little more reactive and returning smiles. REVIEW OF SYSTEMS: No CV, , pulmonary, eye, ENT system symptoms on review. MENTAL STATUS EXAM: Oriented to himself. Insight, judgment, recent and remote memory, attention, concentration, fund of knowledge poor, consistent with his diagnosis. He is not very verbal as I met with him. LABORATORY DATA: Reviewed. IMPRESSION: Major neurocognitive disorder, Alzheimer, vascular with depression, delusion, behavioral disturbance, status post urinary tract infection. PLAN: Continue current psychotropics mentioned in my initial note. Adjust further as clinically indicated. MAN Sera MART MD DR: KHADAR/mariza JOB#: [id number] / [id number]
[2016-11-17] MEDS: ASPIRIN 81 MG TAB.CHEW PO SCH (09:21)
[2016-11-17] MEDS: CHOLECALCIFEROL (VITAMIN D3) 1,000 UNIT TABLET PO SCH (09:21)
[2016-11-17] MEDS: ASCORBIC ACID 500 MG TABLET PO SCH (09:21)
[2016-11-17] MEDS: MULTIVITAMIN with MINERAL TABLET. PO SCH (09:21)
[2016-11-17] MEDS: METOPROLOL TART IMMED RELEASE 25 MG TABLET PO SCH ×2 (09:22→19:48)
[2016-11-17] MEDS: SERTRALINE 25 MG TABLET. PO SCH (09:22)
[2016-11-17] MEDS: CYANOCOBALAMIN (VITAMIN B-12) 250 MCG TABLET PO SCH (09:22)
[2016-11-17] MEDS: VITAMIN A 10,000 UNIT CAPSULE. PO SCH (09:25)
[2016-11-17] MEDS: CEFPODOXIME PROXETIL 200 MG TABLET PO SCH (09:34)
[2016-11-17] MEDS: AMLODIPINE BESYLATE 2.5 MG TABLET PO SCH (09:37)
[2016-11-17 16:08] VITALS: BP 147/53
[2016-11-17] MEDS: QUEtiapine 25 MG TABLET. PO SCH ×2 (16:11→19:48)
[2016-11-17] MEDS: MELATONIN 3 MG TABLET PO SCH (19:48)
--- NOTE | 2016-11-17 20:55 | PDOC ---
Exam Bernabe Demential Exam: Bernabe Note: Please also refer to the separate dictated note~for this date of service dictated separately.~Patient seen individually. Discussed the patient with Nursing staff reviewed the chart.~Reviewed interim history and current functioning. Reviewed vital signs,~Labs/ Radiology~and current medications noted below. Continue current treatment with the changes noted in the dictated addendum note Assessment: Vital Signs: Vital Signs Date Time Temp Pulse Resp B/P Pulse Ox O2 Delivery O2 Flow Rate FiO2 11/17/16 19:48 89 147/53 11/17/16 16:08 97.2 18 95 11/13/16 06:37 Room Air I&O Intake and Output 11/17/16 07:00 Intake Total 1440 ml Balance 1440 ml Intake Oral 1440 ml Current Medications: Meds: Current Medications Quetiapine Fumarate (SEROquel) 12.5 mg BID92 PO Last administered on 11/11/16 14:53; Start 11/08/16 at 09:00; Stop 11/11/16 at 18:30; Status DC Quetiapine Fumarate (SEROquel) 12.5 mg PRN TID PRN PO ANXIETY / AGITATION; Start 11/07/16 at 19:30 Quetiapine Fumarate (SEROquel) 25 mg HS PO Last administered on 11/17/16 19:48 ; Start 11/07/16 at 21:00 Ascorbic Acid (Vitamin C) 500 mg DAILY PO Last administered on 11/17/16 09:21 ; Start 11/08/16 at 09:00 Aspirin (Children'S Aspirin) 81 mg DAILY PO Last administered on 11/17/16 09: 21; Start 11/08/16 at 09:00 Vitamin D (Vitamin D3) 1,000 unit DAILY PO Last administered on 11/17/16 09:21 ; Start 11/08/16 at 09:00 Ibuprofen (Motrin) 400 mg PRN TID PRN PO PAIN; Start 11/07/16 at 19:45 Levothyroxine Sodium (Synthroid) 75 mcg DAILY06 PO Last administered on 05:38; Start 11/08/16 at 06:00 Metoprolol Succinate (Toprol Xl) 25 mg DAILY PO Last administered on 11/09/16 08:31; Start 11/08/16 at 09:00; Stop 11/09/16 at 17:46; Status DC Cyanocobalamin (Vitamin B-12) 500 mcg DAILY PO Last administered on 11/17/16 09:22; Start 11/08/16 at 09:00 Melatonin 4.5 mg HS PO Last administered on 11/17/16 19:48; Start 11/07/16 at 21:00 Multivitamins/ Calcium (Thera-M Plus) 1 tab DAILY PO Last administered on 09:21; Start 11/08/16 at 09:00 Sodium Chloride ([place] Saline Nasal) 1 isaura PRN QID PRN NS Dry Nasal Passages; Start 11/07/16 at 20:00 Non-Formulary Medication 8,000 unit DAILY PO Supplement; Start 11/08/16 at 09:00 ; Stop 11/08/16 at 09:00; Status DC Acetaminophen (Tylenol) 650 mg PRN Q6HRS PRN PO PAIN / TEMP; Start 11/07/16 at 19:45 Multi-Ingredient Ointment (Analgesic [place]) 1 isaura PRN QID PRN TP MUSCLE PAIN; Start 11/07/16 at 19:45 Al Hydroxide/Mg Hydroxide (Mylanta Plus Xs) 15 ml PRN AFTMEALHC PRN PO DYSPEPSIA; Start 11/07/16 at 19:45 Magnesium Hydroxide (Milk Of Magnesia) 2,400 mg PRN QHS PRN PO CONSTIPATION; Start 11/07/16 at 19:45 Olanzapine (Zyprexa Zydis) 2.5 mg PRN Q2HR PRN PO PSYCHOSIS Last administered on 11/09/16 09:27; Start 11/07/16 at 21:15 Pneumococcal Polyvalent Vaccine (Pneumovax 23) 0.5 ml ONCE ONCE VAX IM ; Start 11/08/16 at 09:00; Stop 11/08/16 at 09:01; Status DC Ceftriaxone Sodium (Rocephin Im) 1 gm 1X ONCE IM ; Start 11/08/16 at 18:00; Stop 11/08/16 at 18:01; Status Cancel Vitamin A 10,000 unit DAILY PO Last administered on 11/17/16 09:25; Start at 09:00 Ceftriaxone Sodium (Rocephin Im) 1 gm 1X ONCE IM Last administered on 09:22; Start 11/09/16 at 09:00; Stop 11/09/16 at 09:01; Status DC Metoprolol Tartrate (Lopressor) 25 mg BID PO Last administered on 11/17/16 19: 48; Start 11/09/16 at 21:00 Sertraline HCl (Zoloft) 50 mg DAILY PO Last administered on 11/12/16 08:11; Start 11/10/16 at 09:00; Stop 11/12/16 at 12:11; Status DC Cefpodoxime Proxetil (Vantin) 200 mg BID PO Last administered on 11/11/16 09: 42; Start 11/10/16 at 21:00; Stop 11/11/16 at 13:09; Status DC Pneumococcal Polyvalent Vaccine (Pneumovax 23) 0.5 ml ONCE ONCE VAX IM Last administered on 11/11/16 09:56; Start 11/11/16 at 10:15; Stop 11/11/16 at 10:16 ; Status DC Cefpodoxime Proxetil (Vantin) 200 mg DAILY PO Last administered on 11/17/16 09 :34; Start 11/12/16 at 09:00 Quetiapine Fumarate (SEROquel) 12.5 mg Q24H PO Last administered on 11/17/16 16:11; Start 11/12/16 at 14:00 Sertraline HCl (Zoloft) 75 mg DAILY PO Last administered on 11/17/16 09:22; Start 11/13/16 at 09:00; Stop 11/17/16 at 09:59; Status DC Amlodipine Besylate (Norvasc) 2.5 mg DAILY PO Last administered on 11/17/16 09 :37; Start 11/17/16 at 09:00 Sertraline HCl (Zoloft) 100 mg DAILY PO ; Start 11/18/16 at 09:00 Active Scripts Active Reported Quetiapine Fumarate 25 Mg Tablet 12.5 Mg PO PRN TID PRN Ibuprofen 200 Mg Tablet 400 Mg PO PRN TID PRN [place] Saline Nasal Gel [place] (Sodium Chloride/Aloe Vera) 22 Ml [place] 2 Sprays NS PRN QID PRN Levothyroxine Sodium 75 Mcg Tablet 75 Mcg PO DAILY06 Melatonin 5 Mg Tablet 5 Mg PO HS Quetiapine Fumarate 25 Mg Tablet 25 Mg PO HS Quetiapine Fumarate 25 Mg Tablet 12.5 Mg PO BID Vitamin A 8,000 Unit Capsule 8,000 Unit PO DAILY Daily Multiple Vitamin (Multivitamin) 1 Each Tablet 1 Each PO DAILY Toprol Xl (Metoprolol Succinate) 25 Mg Tab.er.24h 25 Mg PO DAILY Vitamin B-12 (Cyanocobalamin (Vitamin B-12)) 500 Mcg Tablet 500 Mcg PO DAILY Vitamin D3 (Cholecalciferol (Vitamin D3)) 1,000 Unit Tablet 1,000 Unit PO DAILY Children's Aspirin (Aspirin) 81 Mg Tab.chew 81 Mg PO DAILY Ascorbic Acid 500 Mg Tablet 500 Mg PO DAILY Diagnosis: Problems: (1) Renal insufficiency (2) Medical clearance for psychiatric admission (3) Anxiety disorder (4) Impulse control disorder (5) Major depressive disorder, recurrent episode (6) Dementia in Alzheimer's disease with depression (7) Dementia in Alzheimer's disease with delusions DEANA MART MD Nov 17, 2016 20:55
[2016-11-18] MEDS: LEVOTHYROXINE 75 MCG TABLET PO SCH (04:26)
[2016-11-18 06:27] VITALS: BP 137/56
[2016-11-18] MEDS: VITAMIN A 10,000 UNIT CAPSULE. PO SCH (08:25)
[2016-11-18] MEDS: CEFPODOXIME PROXETIL 200 MG TABLET PO SCH (08:25)
[2016-11-18] MEDS: MULTIVITAMIN with MINERAL TABLET. PO SCH (08:25)
[2016-11-18] MEDS: AMLODIPINE BESYLATE 2.5 MG TABLET PO SCH (08:26)
[2016-11-18] MEDS: CYANOCOBALAMIN (VITAMIN B-12) 250 MCG TABLET PO SCH (08:26)
[2016-11-18] MEDS: METOPROLOL TART IMMED RELEASE 25 MG TABLET PO SCH ×2 (08:27→21:04)
[2016-11-18] MEDS: ASCORBIC ACID 500 MG TABLET PO SCH (08:27)
[2016-11-18] MEDS: ASPIRIN 81 MG TAB.CHEW PO SCH (08:27)
[2016-11-18] MEDS: CHOLECALCIFEROL (VITAMIN D3) 1,000 UNIT TABLET PO SCH (08:27)
[2016-11-18] MEDS: SERTRALINE 100 MG TABLET. PO SCH (08:41)
[2016-11-18 12:06] LABS: HEMATOCRIT 31.5 % (39.0-53.0); HEMOGLOBIN 10.4 g/dL (13.0-17.5); RED BLOOD COUNT 3.35 x10^6/uL (4.30-5.70); RED CELL DISTRIBUTION WIDTH 14.1 % (11.5-14.5); WHITE BLOOD COUNT 6.9 x10^3/uL (4.0-11.0)
[2016-11-18 12:16] LABS: ALBUMIN 3.3 g/dL (3.4-5.0); ALBUMIN/GLOBULIN RATIO 0.8 (1.0-1.7); CALCIUM 8.9 mg/dL (8.5-10.1); CREATININE 1.3 mg/dL (0.7-1.3); POTASSIUM 5.5 mmol/L (3.5-5.1); TOTAL BILIRUBIN 0.2 mg/dL (0.2-1.0); TOTAL PROTEIN 7.6 g/dL (6.4-8.2)
--- NOTE | 2016-11-18 12:19 | PN ---
DATE: 11/16/2016 PSYCHIATRIC PROGRESS NOTE This is a late entry for 11/16/2016, covers elements not covered in my initial note. SUBJECTIVE: Overall, per nursing report, the patient has been compliant with his medications, has been walking and a little more interactive in groups and activities. REVIEW OF SYSTEMS: No CV, , pulmonary, eye, ENT system symptoms on review as I met with him in his room. MENTAL STATUS EXAM: Oriented to himself and situation, speech has some latency, coherent. Abstraction fair, computation impaired, language function intact, attention span short. Mood and affect still withdrawn, but improved. LABORATORY DATA: Reviewed. IMPRESSION: Unchanged from initial note. PLAN: Continue psychotropics mentioned in my initial note. Adjust further as clinically indicated. MAN Sera MART MD DR: KHADAR/mariza JOB#: [id number] / [id number]
--- NOTE | 2016-11-18 12:26 | PN ---
DATE: 11/17/2016 PSYCHIATRIC PROGRESS NOTE This is a late entry 11/17/2016, covers elements not covered in my initial note. SUBJECTIVE: The patient was staffed at a treatment team meeting with the entire team the morning of 11/17/2016 and I met with him individually. Appetite about 100%, sleeping 7 to 8 hours. He has been cooperative, fixated on certain things, somewhat obsessive, still appears depressed. REVIEW OF SYSTEMS: No CV, , pulmonary, eye, ENT system symptoms on review. Reliability poor. MENTAL STATUS EXAM: Oriented to himself. Insight, judgment, recent and remote memory, attention, concentration, fund of knowledge poor, consistent with his diagnosis mentioned in my initial note. PLAN: Continue current psychotropics; increase Zoloft from 75 to 100 mg a day. Adjust further as clinically indicated. MAN Sera MART MD DR: KHADAR/mariza JOB#: [id number] / [id number]
[2016-11-18] MEDS: QUEtiapine 25 MG TABLET. PO SCH ×2 (13:54→21:03)
[2016-11-18 15:59] VITALS: BP 144/51
--- NOTE | 2016-11-18 20:54 | PDOC ---
Exam Bernabe Demential Exam: Bernabe Note: Please also refer to the separate dictated note~for this date of service dictated separately.~Patient seen individually. Discussed the patient with Nursing staff reviewed the chart.~Reviewed interim history and current functioning. Reviewed vital signs,~Labs/ Radiology~and current medications noted below. Continue current treatment with the changes noted in the dictated addendum note Assessment: Vital Signs: Vital Signs Date Time Temp Pulse Resp B/P Pulse Ox O2 Delivery O2 Flow Rate FiO2 11/18/16 15:59 98.1 58 20 144/51 99 11/13/16 06:37 Room Air I&O Intake and Output 11/18/16 07:00 Intake Total 1300 ml Balance 1300 ml Intake Oral 1300 ml # Voids 4 # Bowel Movements 1 Labs: Laboratory Tests Test 11/18/16 11:40 White Blood Count 6.9x10^3/uL (4.0-11.0) Red Blood Count 3.35x10^6/uL (4.30-5.70) L Hemoglobin 10.4g/dL (13.0-17.5) L Hematocrit 31.5% (39.0-53.0) L Mean Corpuscular Volume 94fL (79-100) Mean Corpuscular Hemoglobin 31pg (25-35) Mean Corpuscular Hemoglobin Concent 33g/dL (31-37) Red Cell Distribution Width 14.1% (11.5-14.5) Platelet Count 287x10^3/uL (140-400) Sodium Level 140mmol/L (136-145) Potassium Level 5.5mmol/L (3.5-5.1) H Chloride Level 105mmol/L (98-107) Carbon Dioxide Level 26mmol/L (21-32) Anion Gap 9 (6-14) Blood Urea Nitrogen 36mg/dL (8-26) H Creatinine 1.3mg/dL (0.7-1.3) Estimated GFR (Cockcroft-Gault) 52.0 BUN/Creatinine Ratio 28 (6-20) H Glucose Level 114mg/dL (70-99) H Calcium Level 8.9mg/dL (8.5-10.1) Total Bilirubin 0.2mg/dL (0.2-1.0) Aspartate Amino Transferase (AST) 45U/L (15-37) H Alanine Aminotransferase (ALT) 55U/L (16-63) Alkaline Phosphatase 81U/L (46-116) Total Protein 7.6g/dL (6.4-8.2) Albumin 3.3g/dL (3.4-5.0) L Albumin/Globulin Ratio 0.8 (1.0-1.7) L Current Medications: Meds: Current Medications Quetiapine Fumarate (SEROquel) 12.5 mg BID92 PO Last administered on 11/11/16 14:53; Start 11/08/16 at 09:00; Stop 11/11/16 at 18:30; Status DC Quetiapine Fumarate (SEROquel) 12.5 mg PRN TID PRN PO ANXIETY / AGITATION; Start 11/07/16 at 19:30 Quetiapine Fumarate (SEROquel) 25 mg HS PO Last administered on 11/17/16 19:48 ; Start 11/07/16 at 21:00 Ascorbic Acid (Vitamin C) 500 mg DAILY PO Last administered on 11/18/16 08:27 ; Start 11/08/16 at 09:00 Aspirin (Children'S Aspirin) 81 mg DAILY PO Last administered on 11/18/16 08: 27; Start 11/08/16 at 09:00 Vitamin D (Vitamin D3) 1,000 unit DAILY PO Last administered on 11/18/16 08:27 ; Start 11/08/16 at 09:00 Ibuprofen (Motrin) 400 mg PRN TID PRN PO PAIN; Start 11/07/16 at 19:45 Levothyroxine Sodium (Synthroid) 75 mcg DAILY06 PO Last administered on 04:26; Start 11/08/16 at 06:00 Metoprolol Succinate (Toprol Xl) 25 mg DAILY PO Last administered on 11/09/16 08:31; Start 11/08/16 at 09:00; Stop 11/09/16 at 17:46; Status DC Cyanocobalamin (Vitamin B-12) 500 mcg DAILY PO Last administered on 11/18/16 08:26; Start 11/08/16 at 09:00 Melatonin 4.5 mg HS PO Last administered on 11/17/16 19:48; Start 11/07/16 at 21:00 Multivitamins/ Calcium (Thera-M Plus) 1 tab DAILY PO Last administered on 08:25; Start 11/08/16 at 09:00 Sodium Chloride ([place] Saline Nasal) 1 isaura PRN QID PRN NS Dry Nasal Passages; Start 11/07/16 at 20:00 Non-Formulary Medication 8,000 unit DAILY PO Supplement; Start 11/08/16 at 09:00 ; Stop 11/08/16 at 09:00; Status DC Acetaminophen (Tylenol) 650 mg PRN Q6HRS PRN PO PAIN / TEMP; Start 11/07/16 at 19:45 Multi-Ingredient Ointment (Analgesic [place]) 1 isaura PRN QID PRN TP MUSCLE PAIN; Start 11/07/16 at 19:45 Al Hydroxide/Mg Hydroxide (Mylanta Plus Xs) 15 ml PRN AFTMEALHC PRN PO DYSPEPSIA; Start 11/07/16 at 19:45 Magnesium Hydroxide (Milk Of Magnesia) 2,400 mg PRN QHS PRN PO CONSTIPATION; Start 11/07/16 at 19:45 Olanzapine (Zyprexa Zydis) 2.5 mg PRN Q2HR PRN PO PSYCHOSIS Last administered on 11/09/16 09:27; Start 11/07/16 at 21:15 Pneumococcal Polyvalent Vaccine (Pneumovax 23) 0.5 ml ONCE ONCE VAX IM ; Start 11/08/16 at 09:00; Stop 11/08/16 at 09:01; Status DC Ceftriaxone Sodium (Rocephin Im) 1 gm 1X ONCE IM ; Start 11/08/16 at 18:00; Stop 11/08/16 at 18:01; Status Cancel Vitamin A 10,000 unit DAILY PO Last administered on 11/18/16 08:25; Start at 09:00 Ceftriaxone Sodium (Rocephin Im) 1 gm 1X ONCE IM Last administered on 09:22; Start 11/09/16 at 09:00; Stop 11/09/16 at 09:01; Status DC Metoprolol Tartrate (Lopressor) 25 mg BID PO Last administered on 11/18/16 08: 27; Start 11/09/16 at 21:00 Sertraline HCl (Zoloft) 50 mg DAILY PO Last administered on 11/12/16 08:11; Start 11/10/16 at 09:00; Stop 11/12/16 at 12:11; Status DC Cefpodoxime Proxetil (Vantin) 200 mg BID PO Last administered on 11/11/16 09: 42; Start 11/10/16 at 21:00; Stop 11/11/16 at 13:09; Status DC Pneumococcal Polyvalent Vaccine (Pneumovax 23) 0.5 ml ONCE ONCE VAX IM Last administered on 11/11/16 09:56; Start 11/11/16 at 10:15; Stop 11/11/16 at 10:16 ; Status DC Cefpodoxime Proxetil (Vantin) 200 mg DAILY PO Last administered on 11/18/16 08 :25; Start 11/12/16 at 09:00 Quetiapine Fumarate (SEROquel) 12.5 mg Q24H PO Last administered on 11/18/16 13:54; Start 11/12/16 at 14:00 Sertraline HCl (Zoloft) 75 mg DAILY PO Last administered on 11/17/16 09:22; Start 11/13/16 at 09:00; Stop 11/17/16 at 09:59; Status DC Amlodipine Besylate (Norvasc) 2.5 mg DAILY PO Last administered on 11/18/16 08 :26; Start 11/17/16 at 09:00 Sertraline HCl (Zoloft) 100 mg DAILY PO Last administered on 11/18/16 08:41; Start 11/18/16 at 09:00 Active Scripts Active Reported Quetiapine Fumarate 25 Mg Tablet 12.5 Mg PO PRN TID PRN Ibuprofen 200 Mg Tablet 400 Mg PO PRN TID PRN [place] Saline Nasal Gel [place] (Sodium Chloride/Aloe Vera) 22 Ml [place] 2 Sprays NS PRN QID PRN Levothyroxine Sodium 75 Mcg Tablet 75 Mcg PO DAILY06 Melatonin 5 Mg Tablet 5 Mg PO HS Quetiapine Fumarate 25 Mg Tablet 25 Mg PO HS Quetiapine Fumarate 25 Mg Tablet 12.5 Mg PO BID Vitamin A 8,000 Unit Capsule 8,000 Unit PO DAILY Daily Multiple Vitamin (Multivitamin) 1 Each Tablet 1 Each PO DAILY Toprol Xl (Metoprolol Succinate) 25 Mg Tab.er.24h 25 Mg PO DAILY Vitamin B-12 (Cyanocobalamin (Vitamin B-12)) 500 Mcg Tablet 500 Mcg PO DAILY Vitamin D3 (Cholecalciferol (Vitamin D3)) 1,000 Unit Tablet 1,000 Unit PO DAILY Children's Aspirin (Aspirin) 81 Mg Tab.chew 81 Mg PO DAILY Ascorbic Acid 500 Mg Tablet 500 Mg PO DAILY Diagnosis: Problems: (1) Renal insufficiency (2) Medical clearance for psychiatric admission (3) Anxiety disorder (4) Impulse control disorder (5) Major depressive disorder, recurrent episode (6) Dementia in Alzheimer's disease with depression (7) Dementia in Alzheimer's disease with delusions DEANA MART MD Nov 18, 2016 20:54
[2016-11-18] MEDS: MELATONIN 3 MG TABLET PO SCH (21:04)
[2016-11-19] MEDS: LEVOTHYROXINE 75 MCG TABLET PO SCH (05:36)
[2016-11-19 06:11] VITALS: BP 133/60
[2016-11-19] MEDS: METOPROLOL TART IMMED RELEASE 25 MG TABLET PO SCH ×2 (07:19→20:53)
[2016-11-19] MEDS: SERTRALINE 100 MG TABLET. PO SCH (07:19)
[2016-11-19] MEDS: CYANOCOBALAMIN (VITAMIN B-12) 250 MCG TABLET PO SCH (07:19)
[2016-11-19] MEDS: CHOLECALCIFEROL (VITAMIN D3) 1,000 UNIT TABLET PO SCH (07:19)
[2016-11-19] MEDS: MULTIVITAMIN with MINERAL TABLET. PO SCH (07:19)
[2016-11-19] MEDS: CEFPODOXIME PROXETIL 200 MG TABLET PO SCH (07:20)
[2016-11-19] MEDS: AMLODIPINE BESYLATE 2.5 MG TABLET PO SCH (07:20)
[2016-11-19] MEDS: VITAMIN A 10,000 UNIT CAPSULE. PO SCH (07:20)
[2016-11-19] MEDS: ASPIRIN 81 MG TAB.CHEW PO SCH (07:20)
[2016-11-19] MEDS: ASCORBIC ACID 500 MG TABLET PO SCH (07:20)
[2016-11-19 11:41] LABS: CALCIUM 9.1 mg/dL (8.5-10.1); CREATININE 1.3 mg/dL (0.7-1.3)
[2016-11-19] MEDS: QUEtiapine 25 MG TABLET. PO SCH ×2 (13:16→20:53)
[2016-11-19 16:16] VITALS: BP 148/56
[2016-11-19] MEDS: MELATONIN 3 MG TABLET PO SCH (20:53)
--- NOTE | 2016-11-19 22:35 | PDOC ---
Exam Bernabe Demential Exam: Bernabe Note: Please also refer to the separate dictated note~for this date of service dictated separately.~Patient seen individually. Discussed the patient with Nursing staff reviewed the chart.~Reviewed interim history and current functioning. Reviewed vital signs,~Labs/ Radiology~and current medications noted below. Continue current treatment with the changes noted in the dictated addendum note Assessment: Vital Signs: Vital Signs Date Time Temp Pulse Resp B/P Pulse Ox O2 Delivery O2 Flow Rate FiO2 11/19/16 20:53 70 148/56 11/19/16 16:16 98.4 16 99 I&O Intake and Output 11/19/16 07:00 Intake Total 1080 ml Balance 1080 ml Intake Oral 1080 ml Labs: Laboratory Tests Test 11/19/16 11:15 Sodium Level 140mmol/L (136-145) Potassium Level 5.0mmol/L (3.5-5.1) Chloride Level 104mmol/L (98-107) Carbon Dioxide Level 30mmol/L (21-32) Anion Gap 6 (6-14) Blood Urea Nitrogen 34mg/dL (8-26) H Creatinine 1.3mg/dL (0.7-1.3) Estimated GFR (Cockcroft-Gault) 52.0 Glucose Level 102mg/dL (70-99) H Calcium Level 9.1mg/dL (8.5-10.1) Current Medications: Meds: Current Medications Quetiapine Fumarate (SEROquel) 12.5 mg BID92 PO Last administered on 11/11/16 14:53; Start 11/08/16 at 09:00; Stop 11/11/16 at 18:30; Status DC Quetiapine Fumarate (SEROquel) 12.5 mg PRN TID PRN PO ANXIETY / AGITATION; Start 11/07/16 at 19:30 Quetiapine Fumarate (SEROquel) 25 mg HS PO Last administered on 11/19/16 20:53 ; Start 11/07/16 at 21:00 Ascorbic Acid (Vitamin C) 500 mg DAILY PO Last administered on 11/19/16 07:20 ; Start 11/08/16 at 09:00 Aspirin (Children'S Aspirin) 81 mg DAILY PO Last administered on 11/19/16 07: 20; Start 11/08/16 at 09:00 Vitamin D (Vitamin D3) 1,000 unit DAILY PO Last administered on 11/19/16 07:19 ; Start 11/08/16 at 09:00 Ibuprofen (Motrin) 400 mg PRN TID PRN PO PAIN; Start 11/07/16 at 19:45 Levothyroxine Sodium (Synthroid) 75 mcg DAILY06 PO Last administered on 05:36; Start 11/08/16 at 06:00 Metoprolol Succinate (Toprol Xl) 25 mg DAILY PO Last administered on 11/09/16 08:31; Start 11/08/16 at 09:00; Stop 11/09/16 at 17:46; Status DC Cyanocobalamin (Vitamin B-12) 500 mcg DAILY PO Last administered on 11/19/16 07:19; Start 11/08/16 at 09:00 Melatonin 4.5 mg HS PO Last administered on 11/19/16 20:53; Start 11/07/16 at 21:00 Multivitamins/ Calcium (Thera-M Plus) 1 tab DAILY PO Last administered on 07:19; Start 11/08/16 at 09:00 Sodium Chloride ([place] Saline Nasal) 1 isaura PRN QID PRN NS Dry Nasal Passages; Start 11/07/16 at 20:00 Non-Formulary Medication 8,000 unit DAILY PO Supplement; Start 11/08/16 at 09:00 ; Stop 11/08/16 at 09:00; Status DC Acetaminophen (Tylenol) 650 mg PRN Q6HRS PRN PO PAIN / TEMP; Start 11/07/16 at 19:45 Multi-Ingredient Ointment (Analgesic [place]) 1 isaura PRN QID PRN TP MUSCLE PAIN; Start 11/07/16 at 19:45 Al Hydroxide/Mg Hydroxide (Mylanta Plus Xs) 15 ml PRN AFTMEALHC PRN PO DYSPEPSIA; Start 11/07/16 at 19:45 Magnesium Hydroxide (Milk Of Magnesia) 2,400 mg PRN QHS PRN PO CONSTIPATION; Start 11/07/16 at 19:45 Olanzapine (Zyprexa Zydis) 2.5 mg PRN Q2HR PRN PO PSYCHOSIS Last administered on 11/09/16 09:27; Start 11/07/16 at 21:15 Pneumococcal Polyvalent Vaccine (Pneumovax 23) 0.5 ml ONCE ONCE VAX IM ; Start 11/08/16 at 09:00; Stop 11/08/16 at 09:01; Status DC Ceftriaxone Sodium (Rocephin Im) 1 gm 1X ONCE IM ; Start 11/08/16 at 18:00; Stop 11/08/16 at 18:01; Status Cancel Vitamin A 10,000 unit DAILY PO Last administered on 11/19/16 07:20; Start at 09:00 Ceftriaxone Sodium (Rocephin Im) 1 gm 1X ONCE IM Last administered on 09:22; Start 11/09/16 at 09:00; Stop 11/09/16 at 09:01; Status DC Metoprolol Tartrate (Lopressor) 25 mg BID PO Last administered on 11/19/16 20: 53; Start 11/09/16 at 21:00 Sertraline HCl (Zoloft) 50 mg DAILY PO Last administered on 11/12/16 08:11; Start 11/10/16 at 09:00; Stop 11/12/16 at 12:11; Status DC Cefpodoxime Proxetil (Vantin) 200 mg BID PO Last administered on 11/11/16 09: 42; Start 11/10/16 at 21:00; Stop 11/11/16 at 13:09; Status DC Pneumococcal Polyvalent Vaccine (Pneumovax 23) 0.5 ml ONCE ONCE VAX IM Last administered on 11/11/16 09:56; Start 11/11/16 at 10:15; Stop 11/11/16 at 10:16 ; Status DC Cefpodoxime Proxetil (Vantin) 200 mg DAILY PO Last administered on 11/19/16 07 :20; Start 11/12/16 at 09:00; Stop 11/19/16 at 09:51; Status DC Quetiapine Fumarate (SEROquel) 12.5 mg Q24H PO Last administered on 11/19/16 13:16; Start 11/12/16 at 14:00 Sertraline HCl (Zoloft) 75 mg DAILY PO Last administered on 11/17/16 09:22; Start 11/13/16 at 09:00; Stop 11/17/16 at 09:59; Status DC Amlodipine Besylate (Norvasc) 2.5 mg DAILY PO Last administered on 11/19/16 07 :20; Start 11/17/16 at 09:00 Sertraline HCl (Zoloft) 100 mg DAILY PO Last administered on 11/19/16 07:19; Start 11/18/16 at 09:00 Active Scripts Active Reported Quetiapine Fumarate 25 Mg Tablet 12.5 Mg PO PRN TID PRN Ibuprofen 200 Mg Tablet 400 Mg PO PRN TID PRN [place] Saline Nasal [place] (Sodium Chloride/Aloe Vera) 22 Ml [place] 2 Sprays NS PRN QID PRN Levothyroxine Sodium 75 Mcg Tablet 75 Mcg PO DAILY06 Melatonin 5 Mg Tablet 5 Mg PO HS Quetiapine Fumarate 25 Mg Tablet 25 Mg PO HS Quetiapine Fumarate 25 Mg Tablet 12.5 Mg PO BID Vitamin A 8,000 Unit Capsule 8,000 Unit PO DAILY Daily Multiple Vitamin (Multivitamin) 1 Each Tablet 1 Each PO DAILY Toprol Xl (Metoprolol Succinate) 25 Mg Tab.er.24h 25 Mg PO DAILY Vitamin B-12 (Cyanocobalamin (Vitamin B-12)) 500 Mcg Tablet 500 Mcg PO DAILY Vitamin D3 (Cholecalciferol (Vitamin D3)) 1,000 Unit Tablet 1,000 Unit PO DAILY Children's Aspirin (Aspirin) 81 Mg Tab.chew 81 Mg PO DAILY Ascorbic Acid 500 Mg Tablet 500 Mg PO DAILY Diagnosis: Problems: (1) Medical clearance for psychiatric admission (2) Anxiety disorder (3) Impulse control disorder (4) Major depressive disorder, recurrent episode (5) Dementia in Alzheimer's disease with depression (6) Dementia in Alzheimer's disease with delusions DEANA MART MD Nov 19, 2016 22:35
[2016-11-20] MEDS: LEVOTHYROXINE 75 MCG TABLET PO SCH (05:31)
[2016-11-20 06:02] VITALS: BP 112/65
[2016-11-20] MEDS: CHOLECALCIFEROL (VITAMIN D3) 1,000 UNIT TABLET PO SCH (08:06)
[2016-11-20] MEDS: ASPIRIN 81 MG TAB.CHEW PO SCH (08:06)
[2016-11-20] MEDS: SERTRALINE 100 MG TABLET. PO SCH (08:06)
[2016-11-20] MEDS: MULTIVITAMIN with MINERAL TABLET. PO SCH (08:06)
[2016-11-20] MEDS: CYANOCOBALAMIN (VITAMIN B-12) 250 MCG TABLET PO SCH (08:06)
[2016-11-20] MEDS: ASCORBIC ACID 500 MG TABLET PO SCH (08:07)
[2016-11-20] MEDS: AMLODIPINE BESYLATE 2.5 MG TABLET PO SCH (08:07)
[2016-11-20] MEDS: METOPROLOL TART IMMED RELEASE 25 MG TABLET PO SCH ×2 (08:07→20:53)
[2016-11-20] MEDS: VITAMIN A 10,000 UNIT CAPSULE. PO SCH (08:09)
--- NOTE | 2016-11-20 11:48 | PN ---
DATE: 11/18/2016 PSYCHIATRIC PROGRESS NOTE This is a late entry for 11/18/2016 covers elements not covered in my initial note. SUBJECTIVE: Per nursing report, the patient did well in the morning, somewhat withdrawn, quite afraid to come out of his room, believing other demented patients may hurt him. Nursing staff cut his nails. He was appreciative of this. REVIEW OF SYSTEMS: No CV, , pulmonary, eye, ENT system symptoms on review. MENTAL STATUS EXAM: Oriented to himself and situation. Speech moderate latency, often responses monosyllabic. Abstraction fair, computation impaired, language function intact. No suicidal or homicidal ideation. Mood and affect dysphoric, somewhat paranoid. LABORATORY DATA: Reviewed. IMPRESSION: Unchanged from initial note. PLAN: Continue psychotropics mentioned in my initial note may need to increase Seroquel in due course. MAN Sera MART MD DR: KHADAR/mariza JOB#: [id number] / [id number]
--- NOTE | 2016-11-20 11:52 | PN ---
DATE: 11/19/2016 PSYCHIATRIC PROGRESS NOTE This is a late entry of 11/19/2016 covers elements not covered in my initial note. SUBJECTIVE: The patient has been withdrawn, goes with the dining room for meals, compliant with his medications. Vantin was discontinued for UTI. Potassium is reverted back to normal at 5.0. REVIEW OF SYSTEMS: No CV, , pulmonary, eye, ENT system symptoms on review. Reliability varies. MENTAL STATUS EXAM: Oriented to himself and situation. Speech has some latency, low in volume, coherent, abstraction fair, computation impaired, less paranoid. Mood and affect despite the above is improved. LABORATORY DATA: Reviewed. IMPRESSION: Unchanged from initial note. PLAN: Continue current psychotropics. Possible transition to [facility] early next week. MAN Sera MART MD DR: KHADAR/mariza JOB#: [id number] / [id number]
[2016-11-20] MEDS: QUEtiapine 25 MG TABLET. PO SCH ×2 (13:33→20:53)
[2016-11-20] MEDS ORDERED: ACET325T9 PO (15:05)
[2016-11-20] MEDS ORDERED: AMLO2.5T PO (15:06)
[2016-11-20] MEDS ORDERED: OLAN5TAB5 PO (15:09)
[2016-11-20] MEDS ORDERED: SERT100T8 PO (15:12)
[2016-11-20 15:53] VITALS: BP 132/57
[2016-11-20] MEDS: MELATONIN 3 MG TABLET PO SCH (20:52)
--- NOTE | 2016-11-20 20:55 | PDOC ---
Exam Bernabe Demential Exam: Bernabe Note: Please also refer to the separate dictated note~for this date of service dictated separately.~Patient seen individually. Discussed the patient with Nursing staff reviewed the chart.~Reviewed interim history and current functioning. Reviewed vital signs,~Labs/ Radiology~and current medications noted below. Continue current treatment with the changes noted in the dictated addendum note Assessment: Vital Signs: Vital Signs Date Time Temp Pulse Resp B/P Pulse Ox O2 Delivery O2 Flow Rate FiO2 11/20/16 20:53 65 132/57 11/20/16 15:53 98.1 20 99 I&O Intake and Output 11/20/16 07:00 Intake Total 960 ml Balance 960 ml Intake Oral 960 ml Current Medications: Meds: Current Medications Quetiapine Fumarate (SEROquel) 12.5 mg BID92 PO Last administered on 11/11/16 14:53; Start 11/08/16 at 09:00; Stop 11/11/16 at 18:30; Status DC Quetiapine Fumarate (SEROquel) 12.5 mg PRN TID PRN PO ANXIETY / AGITATION; Start 11/07/16 at 19:30 Quetiapine Fumarate (SEROquel) 25 mg HS PO Last administered on 11/20/16 20:53 ; Start 11/07/16 at 21:00 Ascorbic Acid (Vitamin C) 500 mg DAILY PO Last administered on 11/20/16 08:07 ; Start 11/08/16 at 09:00 Aspirin (Children'S Aspirin) 81 mg DAILY PO Last administered on 11/20/16 08: 06; Start 11/08/16 at 09:00 Vitamin D (Vitamin D3) 1,000 unit DAILY PO Last administered on 11/20/16 08:06 ; Start 11/08/16 at 09:00 Ibuprofen (Motrin) 400 mg PRN TID PRN PO PAIN; Start 11/07/16 at 19:45 Levothyroxine Sodium (Synthroid) 75 mcg DAILY06 PO Last administered on 05:31; Start 11/08/16 at 06:00 Metoprolol Succinate (Toprol Xl) 25 mg DAILY PO Last administered on 11/09/16 08:31; Start 11/08/16 at 09:00; Stop 11/09/16 at 17:46; Status DC Cyanocobalamin (Vitamin B-12) 500 mcg DAILY PO Last administered on 11/20/16 08:06; Start 11/08/16 at 09:00 Melatonin 4.5 mg HS PO Last administered on 11/20/16 20:52; Start 11/07/16 at 21:00 Multivitamins/ Calcium (Thera-M Plus) 1 tab DAILY PO Last administered on 08:06; Start 11/08/16 at 09:00 Sodium Chloride ([place] Saline Nasal) 1 isaura PRN QID PRN NS Dry Nasal Passages; Start 11/07/16 at 20:00 Non-Formulary Medication 8,000 unit DAILY PO Supplement; Start 11/08/16 at 09:00 ; Stop 11/08/16 at 09:00; Status DC Acetaminophen (Tylenol) 650 mg PRN Q6HRS PRN PO PAIN / TEMP; Start 11/07/16 at 19:45 Multi-Ingredient Ointment (Analgesic [place]) 1 isaura PRN QID PRN TP MUSCLE PAIN; Start 11/07/16 at 19:45 Al Hydroxide/Mg Hydroxide (Mylanta Plus Xs) 15 ml PRN AFTMEALHC PRN PO DYSPEPSIA; Start 11/07/16 at 19:45 Magnesium Hydroxide (Milk Of Magnesia) 2,400 mg PRN QHS PRN PO CONSTIPATION; Start 11/07/16 at 19:45 Olanzapine (Zyprexa Zydis) 2.5 mg PRN Q2HR PRN PO PSYCHOSIS Last administered on 11/09/16 09:27; Start 11/07/16 at 21:15 Pneumococcal Polyvalent Vaccine (Pneumovax 23) 0.5 ml ONCE ONCE VAX IM ; Start 11/08/16 at 09:00; Stop 11/08/16 at 09:01; Status DC Ceftriaxone Sodium (Rocephin Im) 1 gm 1X ONCE IM ; Start 11/08/16 at 18:00; Stop 11/08/16 at 18:01; Status Cancel Vitamin A 10,000 unit DAILY PO Last administered on 11/20/16 08:09; Start at 09:00 Ceftriaxone Sodium (Rocephin Im) 1 gm 1X ONCE IM Last administered on 09:22; Start 11/09/16 at 09:00; Stop 11/09/16 at 09:01; Status DC Metoprolol Tartrate (Lopressor) 25 mg BID PO Last administered on 11/20/16 20: 53; Start 11/09/16 at 21:00 Sertraline HCl (Zoloft) 50 mg DAILY PO Last administered on 11/12/16 08:11; Start 11/10/16 at 09:00; Stop 11/12/16 at 12:11; Status DC Cefpodoxime Proxetil (Vantin) 200 mg BID PO Last administered on 11/11/16 09: 42; Start 11/10/16 at 21:00; Stop 11/11/16 at 13:09; Status DC Pneumococcal Polyvalent Vaccine (Pneumovax 23) 0.5 ml ONCE ONCE VAX IM Last administered on 11/11/16 09:56; Start 11/11/16 at 10:15; Stop 11/11/16 at 10:16 ; Status DC Cefpodoxime Proxetil (Vantin) 200 mg DAILY PO Last administered on 11/19/16 07 :20; Start 11/12/16 at 09:00; Stop 11/19/16 at 09:51; Status DC Quetiapine Fumarate (SEROquel) 12.5 mg Q24H PO Last administered on 11/20/16 13:33; Start 11/12/16 at 14:00 Sertraline HCl (Zoloft) 75 mg DAILY PO Last administered on 11/17/16 09:22; Start 11/13/16 at 09:00; Stop 11/17/16 at 09:59; Status DC Amlodipine Besylate (Norvasc) 2.5 mg DAILY PO Last administered on 11/20/16 08 :07; Start 11/17/16 at 09:00 Sertraline HCl (Zoloft) 100 mg DAILY PO Last administered on 11/20/16 08:06; Start 11/18/16 at 09:00 Active Scripts Active Reported Sertraline Hcl 100 Mg Tablet 100 Mg PO DAILY Zyprexa Zydis (Olanzapine) 5 Mg Tab.rapdis 2.5 Mg PO PRN Q2HR PRN Amlodipine Besylate 2.5 Mg Tablet 2.5 Mg PO DAILY Tylenol (Acetaminophen) 325 Mg Tablet 650 Mg PO PRN Q6HRS PRN Quetiapine Fumarate 25 Mg Tablet 12.5 Mg PO PRN TID PRN Ibuprofen 200 Mg Tablet 400 Mg PO PRN TID PRN [place] Saline Nasal Gel [place] (Sodium Chloride/Aloe Vera) 22 Ml [place] 2 Sprays NS PRN QID PRN Levothyroxine Sodium 75 Mcg Tablet 75 Mcg PO DAILY06 Melatonin 5 Mg Tablet 5 Mg PO HS Quetiapine Fumarate 25 Mg Tablet 25 Mg PO HS Quetiapine Fumarate 25 Mg Tablet 12.5 Mg PO BID Vitamin A 8,000 Unit Capsule 8,000 Unit PO DAILY Daily Multiple Vitamin (Multivitamin) 1 Each Tablet 1 Each PO DAILY Toprol Xl (Metoprolol Succinate) 25 Mg Tab.er.24h 25 Mg PO DAILY Vitamin B-12 (Cyanocobalamin (Vitamin B-12)) 500 Mcg Tablet 500 Mcg PO DAILY Vitamin D3 (Cholecalciferol (Vitamin D3)) 1,000 Unit Tablet 1,000 Unit PO DAILY Children's Aspirin (Aspirin) 81 Mg Tab.chew 81 Mg PO DAILY Ascorbic Acid 500 Mg Tablet 500 Mg PO DAILY Diagnosis: Problems: (1) Medical clearance for psychiatric admission (2) Anxiety disorder (3) Impulse control disorder (4) Major depressive disorder, recurrent episode (5) Dementia in Alzheimer's disease with depression (6) Dementia in Alzheimer's disease with delusions DEANA MART MD Nov 20, 2016 20:55
[2016-11-21] MEDS: LEVOTHYROXINE 75 MCG TABLET PO SCH (05:46)
[2016-11-21 06:16] VITALS: BP 149/74
[2016-11-21] MEDS: METOPROLOL TART IMMED RELEASE 25 MG TABLET PO SCH (08:41)
[2016-11-21 08:42] VITALS: BP 149/74
[2016-11-21] MEDS: ASCORBIC ACID 500 MG TABLET PO SCH (08:42)
[2016-11-21] MEDS: AMLODIPINE BESYLATE 2.5 MG TABLET PO SCH (08:42)
[2016-11-21] MEDS: MULTIVITAMIN with MINERAL TABLET. PO SCH (08:42)
[2016-11-21] MEDS: CHOLECALCIFEROL (VITAMIN D3) 1,000 UNIT TABLET PO SCH (08:42)
[2016-11-21] MEDS: CYANOCOBALAMIN (VITAMIN B-12) 250 MCG TABLET PO SCH (08:42)
[2016-11-21] MEDS: ASPIRIN 81 MG TAB.CHEW PO SCH (08:42)
[2016-11-21] MEDS: SERTRALINE 100 MG TABLET. PO SCH (08:42)
[2016-11-21] MEDS: VITAMIN A 10,000 UNIT CAPSULE. PO SCH (08:42)
--- NOTE | 2016-11-21 22:28 | PN ---
DATE: 11/20/2016 PSYCHIATRIC PROGRESS NOTE This is a late entry for 11/20/2016, covers elements not covered in my initial note. SUBJECTIVE: Per nursing report, the patient has been withdrawn to his room, otherwise calm, pleasant. REVIEW OF SYSTEMS: No CV, , pulmonary, eye, ENT system symptoms on review. MENTAL STATUS EXAM: Reasonably oriented to himself and situation. Speech moderate to marked latency, often responses monosyllabic. Abstraction fair, computation impaired, language function intact, attention span short, mood and affect somewhat withdrawn. LABORATORY DATA: Reviewed. IMPRESSION: Major neurocognitive disorder, early Alzheimer, vascular with depression; anxiety disorder, unspecified; major depressive disorder with psychotic features in partial remission. Rest diagnoses unchanged. PLAN: Continue current psychotropics. Transition back to detention this coming week. MAN Sera MART MD DR: KHADAR/mariza JOB#: [id number] / [id number]
--- NOTE | 2016-11-22 12:26 | DS ---
DATE OF DISCHARGE: 11/21/2016 DISCHARGE SUMMARY/PSYCHIATRIC PROGRESS NOTE This is a late entry for 11/21/2016. REASON FOR ADMISSION: Please refer to the admission history for details. Briefly, the patient is an 89-year-old male referred from [facility] by his primary care physician and psychiatrist on account of refusing medications, being verbally aggressive, increased confusion, irritable within the context of his history of dementia with depression, delusions. The patient had failed outpatient psychiatric interventions. SIGNIFICANT FINDINGS AND CLINICAL COURSE: Following admission, the patient was seen daily individually by myself from a psychiatric standpoint, followed medically per Dr. Moreno/Dr. Faulkner. He remained quite withdrawn, depressed, isolative. Initially seemed very confused, but later the confusion was better and significant part of his psychiatric symptoms revolved around mood symptoms. He did have a UTI at admission and completed a course of antibiotics for this. Adjustments were made in his psychotropics and he seemed to respond to a combination of Seroquel 12.5 mg at 1400, 25 mg at bedtime, Zoloft 100 mg a day, Seroquel 12.5 t.i.d. p.r.n., melatonin 4.5 mg at bedtime, Zyprexa p.r.n. Prior to discharge on 11/21/2016; temperature 97.4, BP 149/74, pulse 61, respirations 16, O2 sats 97% room air. REVIEW OF SYSTEMS: No CV, , pulmonary, eye, ENT system symptoms on review. Reliability somewhat poor due to his short term memory deficits, still somewhat withdrawn, but better than before. MENTAL STATUS EXAM: Oriented to himself and situation. Speech has some latency, coherent. Abstraction fair, computation impaired, language function intact. Mood and affect was improved. He was less paranoid and suspicious, which is the reason he had given that he was not coming out of his room as much. All of this improved prior to discharge. FINAL DIAGNOSES: Major depressive disorder, recurrent, in partial remission; major neurocognitive disorder, early Alzheimer, vascular with depression, delusions; anxiety disorder, unspecified. Rest diagnoses unchanged from admission including status post urinary tract infection. DISCHARGE MEDICATIONS: Please refer to the [facility]AD. Outpatient psychiatric and medical followup at the [facility]. Time for discharge day management greater than 30 minutes. MAN Sera MART MD DR: Aki JOB#: [id number] / [id number]
== END 2016-11-21 13:30 | DRG 884 ==
LOC: ER 17:03 → GEROPSY 18:23 → ER 18:23
PROVIDERS: ADMIT Psychiatry & Neurology Psychiatry; ATTEND Psychiatry & Neurology Psychiatry
DX: F01.51 Vascular dementia, unspecified severity, with behavioral disturbance (principal); F32.3 Major depressive disorder, single episode, severe with psychotic features; F02.81 Dementia in other diseases classified elsewhere, unspecified severity, with behavioral disturbance; I50.30 Unspecified diastolic (congestive) heart failure; N39.0 Urinary tract infection, site not specified; E03.9 Hypothyroidism, unspecified; F41.9 Anxiety disorder, unspecified; F63.9 Impulse disorder, unspecified; G30.0 Alzheimer's disease with early onset; I48.91 Unspecified atrial fibrillation; H91.91 Unspecified hearing loss, right ear; N18.9 Chronic kidney disease, unspecified; Z86.73 Personal history of transient ischemic attack (TIA), and cerebral infarction without residual deficits; Z87.440 Personal history of urinary (tract) infections
CPT/HCPCS: 36415; 76770; 80048; 80053; 80061; 81001; 82306; 82607; 83036; 83540; 83550; 83735; 84165; 84436; 84443; 84480; 85027; 86592; 86593; 87086; 87186; 90732; 93005; J0696; 99285-25